=== PATIENT | male | born 1945 | race Caucasian/White ===

== ENCOUNTER → 2018-03-12 07:36 | Outpatient (CLI) | payer MEDICARE, OTHER, SELFPAY ==
[2018-03-12 09:11] LABS: Aspartate Aminotransferase 55 IU/L (17-59); Blood Urea Nitrogen 24 mg/dL (9-20); Calcium 9.5 mg/dL (8.4-10.2); Carbon Dioxide 34 mmol/L (22-32); Chloride 102 mmol/L (98-107); Cholesterol 173 mg/dL (140-199); Estimated Glomerular Filt Rate > 60.0 mL/min (>60); Glucose 110 mg/dL (80-110); HDL Cholesterol 52 mg/dL (40-60); HEMOLYSIS < 15 (0-50); LDL Cholesterol Calculated 84 mg/dL (<100); Potassium 3.8 mmol/L (3.4-5.1); Sodium 144 mmol/L (137-145); Triglycerides 187 mg/dL (35-150); Uric Acid 6.4 mg/dL (3.5-8.5)
[2018-03-12 09:16] LABS: Hematocrit 45.4 % (41-53); Hemoglobin 15.8 g/dL (13.5-17.5); Mean Corpuscular HGB Conc 34.8 % (30-36); Mean Corpuscular Hemoglobin 31.2 PG (26-34); Mean Corpuscular Volume 89.5 fL (80-100); Platelet Count 164 X10^3/uL (150-400); Red Blood Cell Count 5.07 X10^6/uL (4.5-5.9); Red Cell Distribution Width 12.9 % (11.6-14.8); White Blood Cell Count 3.8 X10^3/uL (4.5-11.0)
[2018-03-12 09:19] LABS: Add Manual Diff / Slide Review YES
[2018-03-12 09:38] LABS: Prostate Specific Antigen < 0.064 ng/mL (0.10-4.00)
[2018-03-12 10:01] LABS: Neutrophils Absolute Manual 2090 /uL (3000-5900); Total Cells Counted 100
[2018-03-12 10:49] LABS: Thyroid Stimulating Hormone 3.71 uIU/mL (0.47-4.68)
== END ==
PROVIDERS: PCP Internal Medicine; Referring Provider Urology; Visit Provider Internal Medicine
DX: C61 Malignant neoplasm of prostate (principal); E78.00 Pure hypercholesterolemia, unspecified; M10.9 Gout, unspecified
CPT/HCPCS: 36415; 80048; 80061; 84153; 84443; 84450; 84550; 85025

== ENCOUNTER → 2019-02-28 08:39 | Outpatient (CLI) | payer MEDICARE, OTHER, SELFPAY ==
[2019-02-28 09:56] LABS: Aspartate Aminotransferase 29 IU/L (17-59); Blood Urea Nitrogen 21 mg/dL (9-20); Calcium 9.7 mg/dL (8.4-10.2); Carbon Dioxide 33 mmol/L (22-32); Chloride 102 mmol/L (98-107); Cholesterol 187 mg/dL (140-199); Estimated Glomerular Filt Rate > 60.0 mL/min (>60); Glucose 107 mg/dL (80-110); HDL Cholesterol 56 mg/dL (40-60); HEMOLYSIS < 15 (0-50); LDL Cholesterol Calculated 98 mg/dL (<100); Sodium 142 mmol/L (137-145); Triglycerides 167 mg/dL (35-150); Uric Acid 6.6 mg/dL (3.5-8.5)
[2019-02-28 10:20] LABS: TSH w/ Reflex to FT4 2.97 uIU/mL (0.47-4.68)
[2019-02-28 10:25] LABS: Prostate Specific Antigen < 0.064 ng/mL (0.10-4.00)
== END ==
PROVIDERS: PCP Internal Medicine; Visit Provider Internal Medicine
DX: E03.9 Hypothyroidism, unspecified (principal); I10 Essential (primary) hypertension; E78.2 Mixed hyperlipidemia; C61 Malignant neoplasm of prostate
CPT/HCPCS: 36415; 80048; 80061; 84153; 84443; 84450; 84550

== ENCOUNTER → 2020-03-01 10:11 | Outpatient (CLI) | payer MEDICARE, OTHER, SELFPAY ==
[2020-03-01 11:12] LABS: Add Manual Diff / Slide Review NO; Basophils Absolute Auto 100 /uL (0-100); Basophils Percent Auto 2.1 % (0-2); Eosinophils Absolute Auto 200 /uL (0-450); Eosinophils Percent Auto 3.8 % (2-4); Hematocrit 42.9 % (41-53); Hemoglobin 14.7 g/dL (13.5-17.5); Lymphocytes Absolute Auto 1000 /uL (1100-4500); Lymphocytes Percent Auto 23.4 % (25-40); Mean Corpuscular HGB Conc 34.3 % (30-36); Mean Corpuscular Hemoglobin 31.4 PG (26-34); Mean Corpuscular Volume 91.6 fL (80-100); Monocytes Absolute Auto 700 /uL (0-900); Monocytes Percent Auto 15.3 % (3-14); Neutrophils Absolute Auto 2400 /uL (1500-7000); Neutrophils Percent Auto 55.4 % (50-75); Platelet Count 166 X10^3/uL (150-400); Red Blood Cell Count 4.69 X10^6/uL (4.5-5.9); Red Cell Distribution Width 12.7 % (11.6-14.8); White Blood Cell Count 4.3 X10^3/uL (4.5-11.0)
[2020-03-01 11:37] LABS: Aspartate Aminotransferase 32 IU/L (17-59); BUN Creatinine Ratio 23.3 (6-22); Blood Urea Nitrogen 27 mg/dL (9-20); Calcium 9.3 mg/dL (8.4-10.2); Carbon Dioxide 30 mmol/L (22-32); Chloride 102 mmol/L (98-107); Cholesterol 177 mg/dL (140-199); Estimated Glomerular Filt Rate > 60.0 mL/min (>60); Glucose 111 mg/dL (80-110); HDL Cholesterol 51 mg/dL (40-60); HEMOLYSIS < 15 (0-50); LDL Cholesterol Calculated 88 mg/dL (<100); Potassium 4.1 mmol/L (3.4-5.1); Sodium 137 mmol/L (137-145); Triglycerides 191 mg/dL (35-150); Uric Acid 6.9 mg/dL (3.5-8.5)
[2020-03-01 12:06] LABS: TSH w/ Reflex to FT4 3.04 uIU/mL (0.47-4.68)
[2020-03-01 12:09] LABS: Prostate Specific Antigen < 0.064 ng/mL (0.10-4.00)
== END ==
PROVIDERS: PCP Internal Medicine; Referring Provider Internal Medicine; Visit Provider Internal Medicine
DX: E03.9 Hypothyroidism, unspecified (principal); I10 Essential (primary) hypertension; E78.2 Mixed hyperlipidemia; M10.9 Gout, unspecified; C61 Malignant neoplasm of prostate
CPT/HCPCS: 36415; 80048; 80061; 84153; 84443; 84450; 84550; 85025

== ENCOUNTER → 2022-03-24 10:31 | Outpatient (CLI) | payer MEDICARE, OTHER, SELFPAY ==
[2022-03-25 06:29] LABS: PSA, Total < 0.1 ng/mL (0.0-4.0)
== END ==
PROVIDERS: Referring Provider Urology; Visit Provider Urology
DX: Z85.46 Personal history of malignant neoplasm of prostate (principal)
CPT/HCPCS: 36415; 84153; 84154

== ENCOUNTER → 2023-05-02 19:02 | Outpatient (CLI) | payer MEDICARE, OTHER, SELFPAY ==
[2023-05-02 19:59] LABS: BUN Creatinine Ratio 19.3 (6-22); Blood Urea Nitrogen 21 mg/dL (9-20); Calcium 9.9 mg/dL (8.4-10.2); Carbon Dioxide 30 mmol/L (22-32); Chloride 101 mmol/L (98-107); Estimated Glomerular Filt Rate > 60 mL/min (>60); Glucose 118 mg/dL (80-110); HEMOLYSIS < 15 (0-50); Potassium 3.8 mmol/L (3.4-5.1); Sodium 137 mmol/L (137-145)
== END ==
PROVIDERS: Visit Provider Nurse Practitioner Family
DX: U07.1 COVID-19 (principal)
CPT/HCPCS: 80048

== ENCOUNTER → 2023-05-23 08:02 | Outpatient (CLI) | payer MEDICARE, OTHER, SELFPAY ==
[2023-05-23 09:27] LABS: Hematocrit 41.4 % (41-53); Hemoglobin 14.2 g/dL (13.5-17.5); Mean Corpuscular HGB Conc 34.4 % (30-36); Mean Corpuscular Hemoglobin 30.4 PG (26-34); Mean Corpuscular Volume 88.4 fL (80-100); Platelet Count 171 X10^3/uL (150-400); Red Blood Cell Count 4.68 X10^6/uL (4.5-5.9); Red Cell Distribution Width 13.2 % (11.6-14.8); White Blood Cell Count 6.1 X10^3/uL (4.5-11.0)
[2023-05-23 09:43] LABS: Alanine Aminotransferase 22 IU/L (<50); Albumin 3.8 g/dL (3.5-5.0); Albumin Globulin Ratio 1.5 (1.0-2.8); Alkaline Phosphatase 75 U/L (38-126); Aspartate Aminotransferase 31 IU/L (17-59); BUN Creatinine Ratio 19.1 (6-22); Bilirubin Total 1.1 mg/dL (0.2-1.3); Blood Urea Nitrogen 21 mg/dL (9-20); Calcium 9.8 mg/dL (8.4-10.2); Carbon Dioxide 30 mmol/L (22-32); Chloride 102 mmol/L (98-107); Cholesterol 106 mg/dL (140-199); Estimated Glomerular Filt Rate > 60 mL/min (>60); Globulin 2.6 g/dL (1.7-4.1); Glucose 103 mg/dL (80-110); HDL Cholesterol 40 mg/dL (40-60); HEMOLYSIS < 15 (0-50); LDL Cholesterol Calculated 39 mg/dL (<100); Potassium 3.6 mmol/L (3.4-5.1); Sodium 138 mmol/L (137-145); Total Protein 6.4 g/dL (6.3-8.2); Triglycerides 133 mg/dL (35-150)
[2023-05-23 10:10] LABS: TSH w/ Reflex to FT4 2.95 uIU/mL (0.47-4.68)
[2023-05-23 10:11] LABS: Prostate Specific Antigen < 0.064 ng/mL (0.10-4.00)
== END ==
PROVIDERS: PCP Internal Medicine; Referring Provider Internal Medicine; Visit Provider Internal Medicine
DX: E03.9 Hypothyroidism, unspecified (principal); Z85.46 Personal history of malignant neoplasm of prostate; E78.2 Mixed hyperlipidemia; I10 Essential (primary) hypertension; M10.9 Gout, unspecified
CPT/HCPCS: 36415; 80053; 80061; 84153; 84443; 84550; 85027

== ENCOUNTER → 2023-11-14 08:57 | Outpatient (CLI) | payer MEDICARE, OTHER, SELFPAY ==
[2023-11-14 09:47] LABS: Hematocrit 45.3 % (41-53); Hemoglobin 15.4 g/dL (13.5-17.5); Mean Corpuscular Hemoglobin 30.5 PG (26-34); Mean Corpuscular Volume 89.7 fL (80-100); Platelet Count 193 X10^3/uL (150-400); Red Blood Cell Count 5.06 X10^6/uL (4.5-5.9); Red Cell Distribution Width 13.4 % (11.6-14.8); White Blood Cell Count 6.1 X10^3/uL (4.5-11.0)
[2023-11-14 10:04] LABS: Alanine Aminotransferase 29 IU/L (<50); Albumin 4.4 g/dL (3.5-5.0); Albumin Globulin Ratio 1.5 (1.0-2.8); Alkaline Phosphatase 79 U/L (38-126); Aspartate Aminotransferase 43 IU/L (17-59); BUN Creatinine Ratio 22.5 (6-22); Bilirubin Total 0.9 mg/dL (0.2-1.3); Blood Urea Nitrogen 27 mg/dL (9-20); Calcium 9.7 mg/dL (8.4-10.2); Carbon Dioxide 31 mmol/L (22-32); Chloride 102 mmol/L (98-107); Estimated Glomerular Filt Rate > 60 mL/min (>60); Globulin 2.9 g/dL (1.7-4.1); Glucose 105 mg/dL (80-110); HEMOLYSIS < 15 (0-50); Potassium 4.2 mmol/L (3.4-5.1); Sodium 137 mmol/L (137-145); Total Protein 7.3 g/dL (6.3-8.2); Uric Acid 5.3 mg/dL (3.5-8.5)
[2023-11-14 10:31] LABS: Prostate Specific Antigen < 0.064 ng/mL (0.10-4.00)
[2023-11-14 10:35] LABS: TSH w/ Reflex to FT4 2.66 uIU/mL (0.47-4.68)
== END ==
PROVIDERS: PCP Internal Medicine; Referring Provider Internal Medicine; Visit Provider Internal Medicine
DX: Z85.46 Personal history of malignant neoplasm of prostate (principal); E03.9 Hypothyroidism, unspecified; E78.2 Mixed hyperlipidemia
CPT/HCPCS: 36415; 80053; 84153; 84443; 84550; 85027

== ENCOUNTER → 2024-12-10 19:31 | Outpatient (CLI) | payer MEDICARE, OTHER, SELFPAY ==
--- NOTE | 2024-12-10 19:33 | DI.MRI.S_ITS ---
PROCEDURE: MR PELIS WO/W CON INDICATIONS: malignant neoplasm of overlapping sites of bladder TECHNIQUE: Noncontrast coronal T1 spin echo and STIR, sagittal T1 spin echo with fat saturation and STIR, axial T1 spin echo and T2 fast spin echo with fat saturation. After the administration of contrast, axial/sagittal/coronal T1 spin echo with fat saturation through the pelvis . COMPARISON: None. FINDINGS: Image quality: Degraded by susceptibility artifact Lower abdomen: No bowel obstruction or lower abdomen. Colonic diverticula. There is increased fecal loading. Bladder: Diffuse wall thickening. This is not well assessed due to under distension. There is focal diffusion restriction at the anterior and right bladder wall, which is suspicious. Reproductive organs: Prostate bed not well assessed on this study Rectum: Unremarkable Vessels and lymph nodes: There is a T2 hyperintense abnormality in the right lower quadrant anterior aspect, adjacent the external iliac vessels, measuring 2.5 x 3.3 cm. No aneurysmal artery identified. Pelvic wall: Unremarkable Bones: Loss of marrow signal in the superior. Bones bilaterally. IMPRESSION: Reported bladder malignancy with diffuse wall thickening and focal diffusion restriction along the anterior and right bladder wall, likely the primary. Evaluation is limited due to under distension of the bladder. T2 hyperintense suspicious lesion is seen in the right lower quadrant adjacent to the external iliac vessels measuring 3.3 x 2.5 cm. Unfortunately this area is degraded by susceptibility artifact. CT or PET-CT could be helpful for further evaluation. Relatively confluent edema, enhancement, and loss of the intrinsic T1 marrow signal is present in the bilateral superior iliac bones with surrounding soft tissue edema. This is less typical for a bone metastasis. Consider possibility of osteomyelitis or osteitis pubis. This study was marked in PACS for communication and follow-up. Dictated by: Yang Martinez M.D. on 12/11/2024 at 11:48 Approved by: Yang Martinez M.D. on 12/11/2024 at 11:55
== END ==
PROVIDERS: PCP Internal Medicine; Visit Provider Student in an Organized Health Care Education/Training Program
DX: C67.8 Malignant neoplasm of overlapping sites of bladder (principal)
CPT/HCPCS: 72197; A9579

== ENCOUNTER 2025-01-24 22:06 | Emergency (ER) | payer MEDICARE, OTHER, SELFPAY ==
[2025-01-24 22:15] VITALS: BP 138/66; PULSE 87; RESP 16; TEMP 36.7; O2SAT 97; BMI 20.9
--- NOTE | 2025-01-24 22:26 | ED.ANIMALBIT ---
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 Related Data Home Medications ?Medication ?Instructions ?Recorded ?Confirmed CBD Tincture 1 ml PO BEDTIME 05/16/23 11/14/23 cholecalciferol (vitamin D3) 25 50 mcg PO DAILY 05/16/23 12/22/24 mcg (1,000 unit) capsule coenzyme Q10 300 mg capsule (Co 300 mg PO DAILY 05/16/23 12/22/24 Q-10) multivitamin 1 tab PO DAILY 05/16/23 12/22/24 oxybutynin chloride 10 mg 10 mg PO DAILY 11/19/24 12/22/24 tablet,extended release 24 hr phenazopyridine 100 mg tablet 100 mg PO TID 11/19/24 12/22/24 Previous Rx's ?Medication ?Instructions ?Recorded levothyroxine 150 mcg tablet 75 mcg (1/2 x 150 mcg) PO DAILY 01/04/24 (Synthroid) #90 tabs allopurinol 100 mg tablet 100 mg PO DAILY #90 tabs 06/02/24 bisoprolol fumarate 10 mg tablet 5 mg (1/2 x 10 mg) PO DAILY #90 06/02/24 tabs hyoscyamine sulfate 0.125 mg 0.125 mg PO BID-QID PRN spasms #60 11/19/24 disintegrating tablet tabs mirtazapine 15 mg tablet 15 mg PO BEDTIME #90 tabs 12/09/24 gabapentin 300 mg capsule 600 mg (2 x 300 mg) PO TID #180 12/22/24 caps lorazepam 0.5 mg tablet 0.5 mg PO DAILY PRN anxiety #30 12/22/24 tabs rosuvastatin 40 mg tablet 20 mg (1/2 x 40 mg) PO DAILY #45 12/22/24 tabs docusate sodium 250 mg capsule 250 mg PO BID PRN constipation #90 01/05/25 caps amoxicillin 875 mg-potassium 1 tab PO Q12H 10 days #20 tabs 01/24/25 clavulanate 125 mg tablet Allergies Allergy/AdvReac Type Severity Reaction Status Date / Time No Known Drug Allergies Allergy Verified 01/24/25 22:15 Review of Systems Review of Systems Narrative: General: Denies fever, chills, weight loss HEENT: Denies headache, eye drainage, eye irritation, head trauma, sore throat, voice change Cardiovascular: Denies any chest pain, palpitations, tachycardia Respiratory: Denies any shortness of breath, cough, wheeze, stridor GI/: Denies any abdominal pain, nausea, vomiting, diarrhea, bright red blood per rectum, melanotic stools, urinary frequency, urinary retention, dysuria, hematuria MSK: Dog bite to the right hand Skin: Denies any rashes, lesions, discoloration Neuro: Denies any headache, lightheadedness, dizziness, fainting, weakness Psych: Denies SI/HI Patient History Medical History (Updated 01/24/25 @ 23:28 by Franky Escamilla DO) Slow transit constipation Weight loss, abnormal Bladder cancer Insomnia Seasonal affective disorder Generalized anxiety disorder Bone spur (~2019) Chicken pox Cataracts, bilateral (~2016) Diverticular disease (~2014) History of prostate cancer (~2014) Coronary artery calcification Gout Acquired hypothyroidism (~1994) Mixed hyperlipidemia (~1989) Essential hypertension (~1989) Surgical History Anesthesia Dupuytren's contracture History of radical prostatectomy (~2014) Family History Father Toan's granulomatosis Mother RPGN (rapidly progressive glomerulonephritis) Brother Hydrocephalus Grandfather History of heart disease ASCVD (arteriosclerotic cardiovascular disease) Grandmother Dementia Grandmother Cancer Social History Smoking Status: Never smoker Smoking Status: Never smoker Alcohol type: wine Exam Narrative Exam Narrative: General: Cooperative, well-developed, not in acute distress HEENT: Normocephalic, atraumatic, PERRLA, normal sclera, eyelids normal Neck: Active full range of motion, atraumatic Chest: Normal to inspection, negative crepitus, no overlying erythema ecchymosis Respiratory: Normal respiratory effort, not in acute respiratory distress, clear to auscultation bilaterally negative cough, wheeze, tachypnea, rhonchi, rales Cardiology: Regular rate rhythm negative gallop, murmur, rubs GI/: No tenderness to palpation, soft, non rigid, normal to inspection, exam deferred MSK: Full active range of motion in all 4 extremities, atraumatic, no tenderness to palpation of any bony prominences Skin: Laceration noted to the dorsal aspect of the right hand at the base of the 5th and 4th digit, does not involve tendon no foreign body not actively bleeding, there is also a small puncture wound noted to the volar aspect at the base of the thumb in between the 1st and 2nd digit not actively bleeding he is neurovascularly intact to the hand Neuro: Alert awake oriented x3, moves all 4 extremities spontaneously, cranial nerves intact, able to answer all questions appropriately follows commands appropriately Psych: Cooperative, negative suicidal or homicidal ideations Initial Vital Signs Initial Vital Signs: Vital Signs Temperature 98.1 F 01/24/25 22:15 Pulse Rate 87 01/24/25 22:15 Respiratory Rate 16 01/24/25 22:15 Blood Pressure 138/66 01/24/25 22:15 Pulse Oximetry 97 01/24/25 22:15 Oxygen Delivery Method Room Air 01/24/25 22:15 Procedures Laceration Repair Laceration 1: Time of procedure: 23:25 Site: hand Side (If applicable): right Size (cm): 3 Description: linear Depth: simple, single layer Local Anesthetic: lidocaine 1% Amount of anesthesia used (mL): 8 Pre-repair: wound explored, irrigated extensively, deep structures intact and extensive debridement Skin layer closed with: other (Ethilon) Skin layer suture size: 4-0 Number of sutures: 4 Technique: simple, interrupted Course Orders Ordered: Discontinued Medications Diphtheria/Tetanus/Acell Pertussis (Tet,Diph,Pertuss(Acell),Vac/Pf 0.5 Ml Syringe) 0.5 ml IM .ONCE ONE Stop: 01/24/25 22:27 Vital Signs Vital signs: Vital Signs - 8 hr 01/24/25 22:15 Temperature 98.1 F Pulse Rate 87 Respiratory Rate 16 Blood Pressure 138/66 Pulse Oximetry 97 Oxygen Delivery Method Room Air MDM - Animal Bite Differential Diagnosis Differential diagnosis: Likely bite by animal, dog bite and other MDM Narrative Medical decision making narrative: Patient is a 79-year-old male with a past medical history of hyperlipidemia hypertension currently undergoing chemo for prostate cancer comes into the ED from home for evaluation of dog bite, states that his dog bit him in his right hand earlier today, on exam superficial lacerations noted to the base of the 5th and 4th finger, does not involve the tendon he is neurovascularly intact no foreign body he also has a puncture wound noted to the base of the 1st and 2nd finger, the lacerations were loosely approximated, patient was updated on his tetanus and started on prophylactic antibiotics, he was instructed follow up with his primary care doctor he verbalized understanding of this and agrees to being discharged home with outpatient follow up Discharge Plan Departure Patient Disposition: Home Clinical Impression: Hand laceration, Dog bite Instructions: DI for Laceration Repair, DI for Dog Bite Activity Restrictions/Additional Instructions: Please follow up with your primary care doctor to have your wound re-evaluated and have your sutures removed Please return to the emergency department immediately if you start developing fever chills redness streaking or worsening pain to your hand along the antibiotic Please read the discharge instructions sheet carefully and bring all papers to all doctor follow-up visits, as it may contain information that your doctor may want to see. Disease processes change and evolve, if your symptoms worsen or if you develop any new symptoms that are concerning to you please return for evaluation. Your evaluation today does not show any evidence of any life-threatening/serious illnesses requiring admission to the hospital or surgery. Please follow-up with your doctor for re-evaluation in approximately 1 day. Seek immediate medical attention for any worrisome symptoms. *If you do not have a primary care provider please contact the [facility] Resource line at [phone]. They will ask some questions about your medical history and help get you set up with a doctor in the community. Prescriptions: New amoxicillin-pot clavulanate 875-125 mg tablet 1 tab PO Q12H 10 Days Qty: 20 0RF No Action levothyroxine [Synthroid] 150 mcg tablet 75 mcg PO DAILY Qty: 90 3RF allopurinol 100 mg tablet 100 mg PO DAILY Qty: 90 1RF bisoprolol fumarate 10 mg tablet 5 mg PO DAILY Qty: 90 1RF mirtazapine 15 mg tablet 15 mg PO BEDTIME Qty: 90 3RF docusate sodium 250 mg capsule 250 mg PO BID PRN (Reason: constipation) Qty: 90 1RF multivitamin Tablet 1 tab PO DAILY cholecalciferol (vitamin D3) 25 mcg (1,000 unit) capsule 50 mcg PO DAILY Co Q-10 300 mg capsule 300 mg PO DAILY CBD Tincture 1 ml PO BEDTIME phenazopyridine 100 mg tablet 100 mg PO TID oxybutynin chloride 10 mg tablet extended release 24hr 10 mg PO DAILY hyoscyamine sulfate 0.125 mg tablet,disintegrating 0.125 mg PO BID-QID PRN (Reason: spasms) Qty: 60 2RF gabapentin 300 mg capsule 600 mg PO TID Qty: 180 5RF lorazepam 0.5 mg tablet 0.5 mg PO DAILY PRN (Reason: anxiety) Qty: 30 5RF rosuvastatin 40 mg tablet 20 mg PO DAILY Qty: 45 3RF Referrals: Bill Carroll MD [Primary Care Provider, Internal Medicine] Stand Alone Forms: Patient Portal/API
[2025-01-24] MEDS: TET,DIPH,PERTUSS(ACELL),VAC/PF 0.5 ML SYRINGE IM (23:14)
[2025-01-24] MEDS: AMOXICILLIN/CLAV 875/125 MG 1 TAB PO (23:33)
== END 2025-01-24 23:45 | disposition home or self-care (01) ==
PROVIDERS: Emergency Provider Student in an Organized Health Care Education/Training Program; PCP Internal Medicine
DX: S61.411A Laceration without foreign body of right hand, initial encounter (principal); W54.0XXA Bitten by dog, initial encounter; Z23 Encounter for immunization; C61 Malignant neoplasm of prostate
CPT/HCPCS: 12002; 90471; 99283; 90715

== ENCOUNTER → 2025-01-30 07:33 | Outpatient (CLI) | payer MEDICARE, OTHER, SELFPAY ==
[2025-01-30 08:13] LABS: Add Manual Diff / Slide Review NO; Hematocrit 39.6 % (41-53); Hemoglobin 13.3 g/dL (13.5-17.5); Lymphocytes Absolute Auto 300 /uL (1100-4500); Mean Corpuscular HGB Conc 33.6 % (30-36); Mean Corpuscular Hemoglobin 30.2 PG (26-34); Mean Corpuscular Volume 89.7 fL (80-100); Platelet Count 394 X10^3/uL (150-400)
[2025-01-30 08:24] LABS: Alanine Aminotransferase 21 IU/L (<50); Albumin 3.8 g/dL (3.5-5.0); Albumin Globulin Ratio 1.4 (1.0-2.8); Alkaline Phosphatase 85 U/L (38-126); Blood Urea Nitrogen 39 mg/dL (9-20); Calcium 9.4 mg/dL (8.4-10.2); Carbon Dioxide 32 mmol/L (22-32); Chloride 100 mmol/L (98-107); Estimated Glomerular Filt Rate 55 mL/min (>60); Globulin 2.7 g/dL (1.7-4.1); Glucose 165 mg/dL (70-99); HEMOLYSIS < 15 (0-50); Magnesium 1.7 mg/dL (1.6-2.3); Potassium 4.9 mmol/L (3.4-5.1); Sodium 137 mmol/L (137-145); Total Protein 6.5 g/dL (6.3-8.2)
[2025-01-30 08:55] LABS: Thyroid Stimulating Hormone 1.64 uIU/mL (0.47-4.68)
== END ==
PROVIDERS: PCP Internal Medicine; Referring Provider Internal Medicine Hematology & Oncology; Visit Provider Internal Medicine Hematology & Oncology
DX: C67.6 Malignant neoplasm of ureteric orifice (principal); E78.2 Mixed hyperlipidemia; R91.8 Other nonspecific abnormal finding of lung field
CPT/HCPCS: 36415; 80053; 83735; 84443; 85025

== ENCOUNTER → 2025-02-04 09:54 | Outpatient (CLI) | payer MEDICARE, OTHER, SELFPAY ==
--- NOTE | 2025-02-04 09:56 | DI.RAD.S_ITS ---
PROCEDURE: XR FINGER RT MIN 2V INDICATIONS: DIP pain. rt 4th finger TECHNIQUE: AP hand, 2 views of the 4th finger (s) acquired. COMPARISON: None. FINDINGS: Bones: Mildly comminuted oblique intra-articular fracture through the distal 4th phalangeal base appreciated. Distal fragment displaced 2 mm in a volar direction. Joints: Moderate degeneration STT 1st CMC and all interphalangeal joints Soft tissues: Moderate diffuse soft tissue swelling noted IMPRESSION: Comminuted intra-articular fracture 4th distal phalanx Dictated by: Basilio Uribe M.D. on 02/05/2025 at 12:21 Approved by: Basilio Uribe M.D. on 02/05/2025 at 12:23
== END ==
PROVIDERS: PCP Internal Medicine; Referring Provider Family Medicine; Visit Provider Family Medicine
DX: S62.634A Displaced fracture of distal phalanx of right ring finger, initial encounter for closed fracture (principal); S60.041A Contusion of right ring finger without damage to nail, initial encounter; X58.XXXA Exposure to other specified factors, initial encounter
CPT/HCPCS: 73140

== ENCOUNTER 2025-04-05 12:13 | Emergency (ER) | payer MEDICARE, OTHER, SELFPAY ==
[2025-04-05] VITALS (25 sets, daily range): BP systolic 110–156; BP diastolic 59–83; PULSE 80–102; RESP 12–24; TEMP 36.4–36.8; O2SAT 96–99; BMI 22.4
[2025-04-05 14:27] LABS: Add Manual Diff / Slide Review NO; Lymphocytes Absolute Auto 500 /uL (1100-4500); Mean Corpuscular HGB Conc 34.7 % (30-36); Mean Corpuscular Hemoglobin 32.1 PG (26-34); Mean Corpuscular Volume 92.4 fL (80-100); Platelet Count 75 X10^3/uL (150-400)
[2025-04-05 14:29] LABS: Hematocrit 18.7 % (41-53); Hemoglobin 6.5 g/dL (13.5-17.5)
[2025-04-05 14:31] LABS: Alanine Aminotransferase 15 IU/L (<50); Albumin 3.6 g/dL (3.5-5.0); Albumin Globulin Ratio 1.3 (1.0-2.8); Alkaline Phosphatase 74 U/L (38-126); Blood Urea Nitrogen 24 mg/dL (9-20); Calcium 8.7 mg/dL (8.4-10.2); Carbon Dioxide 31 mmol/L (22-32); Chloride 104 mmol/L (98-107); Estimated Glomerular Filt Rate 41 mL/min (>60); Globulin 2.8 g/dL (1.7-4.1); Glucose 89 mg/dL (70-99); HEMOLYSIS < 15 (0-50); Potassium 4.3 mmol/L (3.4-5.1); Sodium 138 mmol/L (137-145); Total Protein 6.4 g/dL (6.3-8.2)
--- NOTE | 2025-04-05 14:40 | EKG_ITS ---
[address] [id number] [address] [place] [address] Test Date: 2025-04-05 Pat Name: Cody Carranza Department: Room: Gender: Male Export Manager: HARMONY : 1945 Requested By: Order Number: [id number] Reading MD: Basilio Mark MD Measurements Intervals [place] Rate: 84 P: 58 OH: 240 QRS: -53 QRSD: 88 T: -8 QT: 392 QTc: 463 Interpretive Statements Sinus rhythm with 1st degree AV block with premature atrial complexes Left axis deviation Electronically Signed On 04-06-2025 5:57:49 PDT by Basilio Mark MD
--- NOTE | 2025-04-05 15:37 | ED.RECABL ---
HPI - Recheck/Abnormal Lab/Rx General Chief Complaint: Recheck/Abnormal Lab/Rx Stated Complaint: Need Infusion, Low Hemoglobin 6.6 Time Seen by Provider: 04/05/25 15:36 Source: patient and family Mode of arrival: Ambulatory Limitations: no limitations History of Present Illness HPI narrative: 79-year-old male history of bladder cancer currently on cisplatin has a received a total cycles, gemcitabine, durvalumab prior prostatectomy patient also takes medication for hypothyroidism, dyslipidemia no aspirin or thinners. Patient presents with complaint of low blood count. He had labs drawn with a his oncologist on Sunday was found to be low, had repeat labs on Sunday was encouraged to go to the hospital for transfusion the hemoglobin in the 6 range but he did not. He did have some lightheadedness but no syncope. He has noticed some mild shortness of breath. Denies any chest pain or pressure. No nausea or vomiting. No issues with bowel movements, no hematuria or issues with bleeding that he is appreciated. He notes his oncologist feels that his drop in hemoglobin is likely from his cisplatin. He notes has a prior prostatectomy and right inguinal hernia repair. No drug allergies. No tobacco, 1 or 2 alcoholic drinks nightly, no recreational drugs. Follow with Dr. Alec Davila, with [facility] in [place]. Dr. Carroll is his primary care physician. Related Data Home Medications ?Medication ?Instructions ?Recorded ?Confirmed cholecalciferol (vitamin D3) 25 50 mcg PO DAILY 05/16/23 02/27/25 mcg (1,000 unit) capsule coenzyme Q10 300 mg capsule (Co 300 mg PO DAILY 05/16/23 02/27/25 Q-10) multivitamin 1 tab PO DAILY 05/16/23 02/27/25 oxybutynin chloride 10 mg 10 mg PO DAILY 11/19/24 02/27/25 tablet,extended release 24 hr phenazopyridine 100 mg tablet 100 mg PO TID 11/19/24 02/27/25 magnesium glycinate 250 mg PO .Nightly 02/04/25 02/27/25 diclofenac potassium 25 mg capsule 25 mg PO BID 02/27/25 02/27/25 furosemide 20 mg tablet (Lasix) 20 mg PO DAILY 02/27/25 02/27/25 Previous Rx's ?Medication ?Instructions ?Recorded allopurinol 100 mg tablet 100 mg PO DAILY #90 tabs 06/02/24 bisoprolol fumarate 10 mg tablet 5 mg (1/2 x 10 mg) PO DAILY #90 06/02/24 tabs lorazepam 0.5 mg tablet 0.5 mg PO DAILY PRN anxiety #30 12/22/24 tabs rosuvastatin 40 mg tablet 20 mg (1/2 x 40 mg) PO DAILY #45 12/22/24 tabs docusate sodium 250 mg capsule 250 mg PO BID PRN constipation #90 01/05/25 caps levothyroxine 150 mcg tablet 75 mcg (1/2 x 150 mcg) PO DAILY 02/23/25 (Synthroid) #90 tabs mirtazapine 15 mg tablet 15 mg PO BEDTIME #90 tabs 03/02/25 gabapentin 300 mg capsule 300 mg PO BID #240 caps 03/03/25 Allergies Allergy/AdvReac Type Severity Reaction Status Date / Time No Known Drug Allergies Allergy Verified 04/05/25 12:26 Review of Systems Review of Systems ROS Unobtainable: All systems reviewed & are unremarkable except as noted in HPI and below Patient History Medical History Slow transit constipation Weight loss, abnormal Bladder cancer Insomnia Seasonal affective disorder Generalized anxiety disorder Bone spur (~2019) Chicken pox Cataracts, bilateral (~2016) Diverticular disease (~2014) History of prostate cancer (~2014) Coronary artery calcification Gout Acquired hypothyroidism (~1994) Mixed hyperlipidemia (~1989) Essential hypertension (~1989) Surgical History Anesthesia Dupuytren's contracture History of radical prostatectomy (~2014) Family History Father Toan's granulomatosis Mother RPGN (rapidly progressive glomerulonephritis) Brother Hydrocephalus Grandfather History of heart disease ASCVD (arteriosclerotic cardiovascular disease) Grandmother Dementia Grandmother Cancer Alcohol type: wine Exam Narrative Exam Narrative: GENERAL: Alert and oriented x three, male mild distress HEENT: Head normocephalic, atraumatic, EOMI, pupils reactive, face symmetric, moist mucous membranes NECK: Supple, full range of motion CARDIOVASCULAR: Regular rate and rhythm without murmurs, rubs or gallops. No JVD. Trace edema bilateral lower extremities. RESPIRATORY: Breath sounds equal bilaterally, no wheezes rales or rhonchi. No tachypnea or accessory muscle use. ABDOMEN: Soft, nontender. Normoactive bowel sounds all 4 quadrants. No guarding or rebound, rigidity, no mass : No CVA tenderness EXTREMITIES: Normal range of motion, no clubbing or edema. Neurovascularly intact NEUROLOGICAL: Cranial nerves II through XII grossly intact. Moving all extremities SKIN: Warm, dry, no petechiae, no rashes or lesions. Initial Vital Signs Initial Vital Signs: Vital Signs Temperature 98.3 F 04/05/25 12:24 Pulse Rate 102 H 04/05/25 12:24 Respiratory Rate 17 04/05/25 12:24 Blood Pressure 110/59 L 04/05/25 12:24 Pulse Oximetry 97 04/05/25 12:24 Oxygen Delivery Method Room Air 04/05/25 12:24 Course Orders Ordered: Discontinued Medications Heparin Sodium (Porcine) (Heparin 500 Unit/5 Ml Port Flush) 500 unit IV PRN PRN PRN Reason: Flush Last Admin: 04/05/25 21:42 Dose: 500 unit Documented By: DARREN Heparin Sodium (Porcine) (Heparin 500 Unit/5 Ml Port Flush) 500 unit IV PRN PRN PRN Reason: Flush Heparin Sodium (Porcine) (Heparin Flush (Cl/Picc/Mid-Line) 50 Unit/5 Ml Syringe) 50 unit IV PRN PRN PRN Reason: Flush Vital Signs Vital signs: Vital Signs - 8 hr 04/05/25 12:24 04/05/25 14:36 04/05/25 15:00 Temperature 98.3 F Pulse Rate 102 H 85 80 Respiratory Rate 17 19 16 Blood Pressure 110/59 L Pulse Oximetry 97 98 97 Oxygen Delivery Method Room Air 04/05/25 15:26 04/05/25 15:26 04/05/25 15:30 Temperature Pulse Rate 81 Respiratory Rate 17 Blood Pressure 126/70 128/68 Pulse Oximetry 98 Oxygen Delivery Method 04/05/25 15:30 04/05/25 16:00 04/05/25 16:00 Temperature Pulse Rate 80 83 Respiratory Rate 17 Blood Pressure 125/65 Pulse Oximetry 97 96 Oxygen Delivery Method 04/05/25 16:25 04/05/25 16:30 04/05/25 16:30 Temperature 98 F Pulse Rate 84 83 Respiratory Rate 16 12 Blood Pressure 125/65 137/73 Pulse Oximetry 97 Oxygen Delivery Method 04/05/25 16:42 04/05/25 16:45 04/05/25 16:45 Temperature 98.1 F Pulse Rate 84 83 Respiratory Rate 16 21 Blood Pressure 137/73 128/74 Pulse Oximetry 98 Oxygen Delivery Method 04/05/25 17:00 04/05/25 17:00 04/05/25 17:30 Temperature Pulse Rate 82 81 Respiratory Rate 13 15 Blood Pressure 130/73 Pulse Oximetry 99 99 Oxygen Delivery Method 04/05/25 17:30 04/05/25 18:00 04/05/25 18:18 Temperature Pulse Rate 85 Respiratory Rate 23 Blood Pressure 143/73 H 139/76 Pulse Oximetry 97 Oxygen Delivery Method 04/05/25 18:18 Temperature Pulse Rate 83 Respiratory Rate 20 Blood Pressure Pulse Oximetry 97 Oxygen Delivery Method MDM - Recheck/Abnormal Lab/Rx Lab Data 04/05/25 14:05 04/05/25 14:05 Labs: Lab Results 04/05/25 Range/Units 14:05 WBC 2.5 L (4.5-11.0) X10^3/uL RBC 2.02 L (4.5-5.9) X10^6/uL Hgb 6.5 L* (13.5-17.5) g/dL Hct 18.7 L* (41-53) % MCV 92.4 (80-100) fL MCH 32.1 (26-34) PG MCHC 34.7 (30-36) % RDW 16.4 H (11.6-14.8) % Plt Count 75 L (150-400) X10^3/uL Neut % (Auto) 41.8 L (50-75) % Lymph % (Auto) 20.4 L (25-40) % [place] % (Auto) 35.7 H (3-14) % Eos % (Auto) 1.7 L (2-4) % Baso % (Auto) 0.4 (0-2) % Neut # (Auto) 1000 L (0455-9173) /uL Lymph # (Auto) 500 L (7725-0379) /uL [place] # (Auto) 900 (0-900) /uL Eos # (Auto) 0 (0-450) /uL Baso # (Auto) 0 (0-100) /uL Sodium 138 (137-145) mmol/L Potassium 4.3 (3.4-5.1) mmol/L Chloride 104 (98-107) mmol/L Carbon Dioxide 31 (22-32) mmol/L BUN 24 H (9-20) mg/dL Creatinine 1.67 H (0.66-1.25) mg/dL Estimated GFR 41 L (>60) mL/min BUN/Creatinine Ratio 14.4 (6-22) Glucose 89 (70-99) mg/dL Calcium 8.7 (8.4-10.2) mg/dL Magnesium 1.9 (1.6-2.3) mg/dL Total Bilirubin 0.4 (0.2-1.3) mg/dL AST 29 (17-59) IU/L ALT 15 (<50) IU/L Alkaline Phosphatase 74 (38-126) U/L Total Protein 6.4 (6.3-8.2) g/dL Albumin 3.6 (3.5-5.0) g/dL Globulin 2.8 (1.7-4.1) g/dL Albumin/Globulin Ratio 1.3 (1.0-2.8) Blood Type B Negative Antibody Screen Negative Crossmatch See Detail ECG Data Attestation: I personally reviewed and interpreted this ECG as follows: Interpretation: Sinus rhythm with a first-degree AV block rate 84 MO 240 QRS 88 QTC of 463, no acute ST-elevation or depression. No prior for comparison. MDM Narrative Medical decision making narrative: Labs show white count of 2.5 hemoglobin 6.5 with platelets of 75 on 03/17/2025 patient was 2.8 with a hemoglobin of 8.8 and platelets of 128 in January was 2.9 white count with platelets of 394 and a hemoglobin of 13.3. Patient's electrolytes are overall appropriate BUN 24 creatinine is 1.67 was 1.32 earlier in March. Magnesium Plan to transfuse 2 units packed red blood cells. Patient gives verbal and written consent for transfusion. Did reach out to patient's oncology through [place], paged at [phone] Valdovinos, oncology with [facility]. States 1 unit would be acceptable. Patient has not labs ordered for this week could discharge after so long as he is stable. Patient signed out to Dr. Pena while awaiting completion of his transfusion. No plan for additional interventions unless patient has a any reactions or issues plan for discharge home afterwards. Critical Care Time Critical Care Time Critical Care Time: Yes Total Critical Care Time: 20 Attestation: The high probability of a clinically significant, sudden or life threatening deterioration of the [systems] system(s) required my full and direct attention, intervention and personal management. The aggregate critical care time was [--] minutes. This time is in addition to time spent performing reported procedures but includes the following: [x] Data Review and interpretation [x] Patient assessment and monitoring of vital signs [x] Documentation [x] Medication orders and management Discharge Plan Departure Patient Disposition: Home Clinical Impression: Symptomatic anemia Activity Restrictions/Additional Instructions: You received 2 units of blood here in the department today. I did talk to the oncologist on-call for your team, you should have repeat labs this week. Your white blood cell count was 2.5 with a hemoglobin of 6.5 and a hematocrit 18.7 with platelets of 75. Your creatinine was 1.67 with a GFR of 41 today she had otherwise normal electrolytes, your magnesium was normal range at 1.9. Please return if you have new chest pain or shortness of breath, fevers, lightheadedness or passing out, persistent vomiting or other new or concerning changes Prescriptions: No Action allopurinol 100 mg tablet 100 mg PO DAILY Qty: 90 1RF bisoprolol fumarate 10 mg tablet 5 mg PO DAILY Qty: 90 1RF docusate sodium 250 mg capsule 250 mg PO BID PRN (Reason: constipation) Qty: 90 1RF levothyroxine [Synthroid] 150 mcg tablet 75 mcg PO DAILY Qty: 90 3RF mirtazapine 15 mg tablet 15 mg PO BEDTIME Qty: 90 3RF gabapentin 300 mg capsule 300 mg PO BID Qty: 240 3RF multivitamin Tablet 1 tab PO DAILY cholecalciferol (vitamin D3) 25 mcg (1,000 unit) capsule 50 mcg PO DAILY Co Q-10 300 mg capsule 300 mg PO DAILY phenazopyridine 100 mg tablet 100 mg PO TID oxybutynin chloride 10 mg tablet extended release 24hr 10 mg PO DAILY magnesium glycinate 250 mg PO .Nightly lorazepam 0.5 mg tablet 0.5 mg PO DAILY PRN (Reason: anxiety) Qty: 30 5RF rosuvastatin 40 mg tablet 20 mg PO DAILY Qty: 45 3RF furosemide [Lasix] 20 mg tablet 20 mg PO DAILY diclofenac potassium 25 mg capsule 25 mg PO BID Referrals: Bill Carroll MD [Primary Care Provider, Internal Medicine] Stand Alone Forms: Patient Portal/API
[2025-04-05 15:59] LABS: Magnesium 1.9 mg/dL (1.6-2.3)
== END 2025-04-05 21:47 | disposition home or self-care (01) ==
PROVIDERS: Emergency Provider Emergency Medicine; PCP Internal Medicine
DX: D64.9 Anemia, unspecified (principal); I44.0 Atrioventricular block, first degree; R06.02 Shortness of breath
CPT/HCPCS: 36415; 36430; 80053; 83735; 85025; 86850; 86900; 86901; 93005; 93010; 99284; 99285; P9016; J1642

== ENCOUNTER 2025-04-15 08:54 | Emergency (ER) | payer MEDICARE, OTHER, SELFPAY ==
[2025-04-15] VITALS (16 sets, daily range): BP systolic 135–187; BP diastolic 65–87; PULSE 75–92; RESP 11–20; TEMP 36.7; O2SAT 92–98; BMI 21.7
--- NOTE | 2025-04-15 09:11 | EKG_ITS ---
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
--- NOTE | 2025-04-15 09:11 | DI.RAD.S_ITS ---
PROCEDURE: XR CHEST 1V INDICATIONS: Chest Pain TECHNIQUE: One view of the chest was acquired. COMPARISON: None. FINDINGS: Surgical changes and devices: Right-sided Port-A-Cath. Lungs and pleura: Lungs are clear. No pleural effusions or pneumothorax. Mediastinum: Mediastinal contours appear normal. Heart size is normal. Bones and chest wall: No suspicious bony lesions. Overlying soft tissues appear unremarkable. IMPRESSION: No acute cardiopulmonary abnormality is seen. Dictated by: Jeny Jean MD, PhD on 04/15/2025 at 9:59 Approved by: Jeny Jean MD, PhD on 04/15/2025 at 9:59
--- NOTE | 2025-04-15 09:11 | ED.GENADULT ---
HPI - General Adult General Chief complaint: Weakness Stated complaint: Increased Lethargy Time Seen by Provider: 04/15/25 09:09 Source: patient, RN notes reviewed and old records reviewed Mode of arrival: EMS Limitations: no limitations History of Present Illness HPI narrative: 79-year-old male history of bladder cancer currently on cisplatin, gemcitabine, durvalumab with prior prostatectomy on medication for hypothyroidism, dyslipidemia but no aspirin or thinners. Patient was seen here on 04/05/2025 had symptomatic anemia has been seeing his oncologist was found to have his numbers low and suspected to be related to his chemotherapy has been encouraged to evaluate and had a blood transfusion with 2 units on 04/05/2025. Patient has been feeling improved started to feel little bit fatigued and unwell yesterday, today his states he is answering questions but keeps falling asleep. He has been weak and have difficulty with ambulating and slid off the bed when trying to get to the bathroom. States he was walking and ambulating okay yesterday. Denies any fevers. Patient denies any pain no headaches, no chest pain no shortness of breath no abdominal back or flank pain. Notes he feels dizzy like the room is spinning when he gets up from a sitting to standing position. He denies any syncope, no tunnel vision. He has not had similar symptoms in the past. He states it does not seem to be worse if he shakes his head side to side quickly. He has had decreased appetite since yesterday. Has been having regular stools. No dysuria urgency or frequency. No new rash or skin changes. No new medications. He completed his last dose of cisplatin a month ago, he had gemcitabine and durvalumab on 03/25/2025. He follows with the oncology with Dr. Alec Davila in [place]. Dr. Carroll is his primary care physician. Related Data Home Medications ?Medication ?Instructions ?Recorded ?Confirmed cholecalciferol (vitamin D3) 25 50 mcg PO DAILY 05/16/23 02/27/25 mcg (1,000 unit) capsule coenzyme Q10 300 mg capsule (Co 300 mg PO DAILY 05/16/23 02/27/25 Q-10) multivitamin 1 tab PO DAILY 05/16/23 02/27/25 oxybutynin chloride 10 mg 10 mg PO DAILY 11/19/24 02/27/25 tablet,extended release 24 hr phenazopyridine 100 mg tablet 100 mg PO TID 11/19/24 02/27/25 magnesium glycinate 250 mg PO .Nightly 02/04/25 02/27/25 diclofenac potassium 25 mg capsule 25 mg PO BID 02/27/25 02/27/25 furosemide 20 mg tablet (Lasix) 20 mg PO DAILY 02/27/25 02/27/25 Previous Rx's ?Medication ?Instructions ?Recorded allopurinol 100 mg tablet 100 mg PO DAILY #90 tabs 06/02/24 bisoprolol fumarate 10 mg tablet 5 mg (1/2 x 10 mg) PO DAILY #90 06/02/24 tabs lorazepam 0.5 mg tablet 0.5 mg PO DAILY PRN anxiety #30 12/22/24 tabs rosuvastatin 40 mg tablet 20 mg (1/2 x 40 mg) PO DAILY #45 12/22/24 tabs docusate sodium 250 mg capsule 250 mg PO BID PRN constipation #90 01/05/25 caps levothyroxine 150 mcg tablet 75 mcg (1/2 x 150 mcg) PO DAILY 02/23/25 (Synthroid) #90 tabs mirtazapine 15 mg tablet 15 mg PO BEDTIME #90 tabs 03/02/25 gabapentin 300 mg capsule 300 mg PO BID #240 caps 03/03/25 meclizine 50 mg tablet 50 mg PO BID PRN dizziness or 04/15/25 vertigo #14 tabs Allergies Allergy/AdvReac Type Severity Reaction Status Date / Time No Known Drug Allergies Allergy Verified 04/15/25 09:08 Review of Systems Review of Systems ROS Unobtainable: All systems reviewed & are unremarkable except as noted in HPI and below Patient History Medical History Slow transit constipation Weight loss, abnormal Bladder cancer Insomnia Seasonal affective disorder Generalized anxiety disorder Bone spur (~2019) Chicken pox Cataracts, bilateral (~2016) Diverticular disease (~2014) History of prostate cancer (~2014) Coronary artery calcification Gout Acquired hypothyroidism (~1994) Mixed hyperlipidemia (~1989) Essential hypertension (~1989) Surgical History Anesthesia Dupuytren's contracture History of radical prostatectomy (~2014) Family History Father Toan's granulomatosis Mother RPGN (rapidly progressive glomerulonephritis) Brother Hydrocephalus Grandfather History of heart disease ASCVD (arteriosclerotic cardiovascular disease) Grandmother Dementia Grandmother Cancer Social History Smoking Status: Unknown if ever smoked Smoking Status: Unknown if ever smoked Alcohol type: wine Exam Narrative Exam Narrative: GEN: well nourished, well appearing male, alert and oriented x [default value], patient appears to be in mild distress. HEENT: Atraumatic, pupils are equal round reactive to light, extraocular movements are intact, no nystagmus, nares are clear, TMs are clear with no fluid, there is no conjunctival pallor. Throat is clear without any exudates, erythema, tonsillar enlargement or uvular deviation, no facial droop, no cervical vertebral tenderness HEART: Regular rate and rhythm without murmur, clicks, rubs. No carotid bruits, pulses are equal in upper and lower extremities LUNGS:Lungs clear to auscultation, no wheezes, rales, crackles, chest moves symmetrically ABD:bowel sounds normal, soft, non-tender, no guarding, rebound, rigidity, no masses noted, no hepatosplenomegaly :No CVA tenderness MSCL: Non-tender, no muscle atrophy, muscles strength 5/5 upper and lower extremities, solutions development analyst equal bilaterally. Full range of motion. NEURO:CN 2-12 intact, sensation normal, no dysarthria, no aphasia. Initial Vital Signs Initial Vital Signs: Vital Signs Temperature 98.0 F 04/15/25 08:55 Pulse Rate 83 04/15/25 08:55 Respiratory Rate 14 04/15/25 08:55 Blood Pressure 141/67 H 04/15/25 08:55 Pulse Oximetry 96 04/15/25 08:55 Oxygen Delivery Method Room Air 04/15/25 08:55 Course Orders Ordered: ED Orders 04/15/25 09:21 CT head/brain wo con Stat 04/15/25 14:00 Urine Microscopic Stat Discontinued Medications Sodium Chloride (Normal Saline 0.9%) 500 mls @ 1,000 mls/hr IV BOLUS ONE Stop: 04/15/25 11:35 Last Infusion: 04/15/25 12:00 Dose: Infused Documented By: Admin: 04/15/25 11:15 Dose: 1,000 mls/hr Documented By: MARY Meclizine HCl (Meclizine Hcl 12.5 Mg Tablet) 50 mg PO NOW ONE Stop: 04/15/25 09:22 Last Admin: 04/15/25 09:29 Dose: 50 mg Documented By: ESPERANZA Vital Signs Vital signs: Vital Signs - 8 hr 04/15/25 10:30 04/15/25 10:30 04/15/25 11:00 Pulse Rate 75 78 Respiratory Rate 11 L 14 Blood Pressure 137/66 Pulse Oximetry 96 96 Oxygen Delivery Method Oxygen Flow Rate 04/15/25 11:00 04/15/25 11:30 04/15/25 11:30 Pulse Rate 80 Respiratory Rate 12 Blood Pressure 135/65 148/75 H Pulse Oximetry 92 Oxygen Delivery Method Nasal Cannula Oxygen Flow Rate 2 04/15/25 12:00 04/15/25 12:00 04/15/25 12:30 Pulse Rate 77 79 Respiratory Rate 13 20 Blood Pressure 151/82 H Pulse Oximetry 98 94 Oxygen Delivery Method Room Air Oxygen Flow Rate 04/15/25 12:30 04/15/25 13:00 04/15/25 13:00 Pulse Rate 76 Respiratory Rate 15 Blood Pressure 166/74 H 169/80 H Pulse Oximetry 95 Oxygen Delivery Method Oxygen Flow Rate 04/15/25 13:30 04/15/25 13:30 04/15/25 14:00 Pulse Rate 78 Respiratory Rate 15 Blood Pressure 158/86 H 187/87 H Pulse Oximetry 96 Oxygen Delivery Method Oxygen Flow Rate 04/15/25 14:00 04/15/25 14:30 04/15/25 15:03 Pulse Rate 87 81 92 H Respiratory Rate 17 13 Blood Pressure Pulse Oximetry 97 98 96 Oxygen Delivery Method Room Air Oxygen Flow Rate 04/15/25 15:04 04/15/25 15:04 Pulse Rate 86 Respiratory Rate Blood Pressure 181/87 H Pulse Oximetry 96 Oxygen Delivery Method Oxygen Flow Rate Medical Decision Making Lab Data 04/15/25 08:50 04/15/25 08:50 Labs: Lab Results 04/15/25 04/15/25 Range/Units 08:50 14:00 WBC 4.2 L (4.5-11.0) X10^3/uL RBC 3.07 L (4.5-5.9) X10^6/uL Hgb 10.0 L (13.5-17.5) g/dL Hct 28.8 L (41-53) % MCV 93.8 (80-100) fL MCH 32.5 (26-34) PG MCHC 34.6 (30-36) % RDW 16.4 H (11.6-14.8) % Plt Count 253 (150-400) X10^3/uL Neut % (Auto) Not Reportable Lymph % (Auto) Not Reportable [place] % (Auto) Not Reportable Eos % (Auto) Not Reportable Baso % (Auto) Not Reportable Lymph # (Auto) Not Reportable [place] # (Auto) Not Reportable Baso # (Auto) Not Reportable Total Counted 100 Seg Neutrophils % 44.0 (38-70) % Lymphocytes % (Manual) 26.0 (25-45) % Monocytes % (Manual) 18.0 H (2-11) % Eosinophils % (Manual) 8.0 H (2-4) % Basophils % (Manual) 4.0 H (0-1) % Neutrophils # (Manual) 1848 L (8704-9742) /uL Nucleated RBCs 1 H ( - 0) #/Diff RBC Morphology See below Anisocytosis 1+ H PT 11.4 (9.4-12.5) SECONDS INR 1.0 (0.9-1.3) APTT 29 (25.1-36.5) SECONDS Sodium 143 (137-145) mmol/L Potassium 3.8 (3.4-5.1) mmol/L Chloride 106 (98-107) mmol/L Carbon Dioxide 29 (22-32) mmol/L BUN 22 H (9-20) mg/dL Creatinine 1.53 H (0.66-1.25) mg/dL Estimated GFR 46 L (>60) mL/min BUN/Creatinine Ratio 14.4 (6-22) Glucose 91 (70-99) mg/dL Calcium 9.3 (8.4-10.2) mg/dL Magnesium 1.6 (1.6-2.3) mg/dL Total Bilirubin 0.3 (0.2-1.3) mg/dL AST 29 (17-59) IU/L ALT 12 (<50) IU/L Alkaline Phosphatase 78 (38-126) U/L Total Creatine Kinase 66 (55-170) U/L Troponin I < 0.012 (0.01-0.034) ng/mL NT-Pro-B Natriuret Pep 474 H (<450) pg/mL Total Protein 7.0 (6.3-8.2) g/dL Albumin 4.0 (3.5-5.0) g/dL Globulin 3.0 (1.7-4.1) g/dL Albumin/Globulin Ratio 1.3 (1.0-2.8) Lipase 87 (23-300) U/L Urine RBC None seen (0-5/HPF) Urine WBC None seen (0-5/HPF) Ur Squamous Epith Cells None seen (0-5/HPF) Urine Bacteria None seen (None) Ur Culture Indicated? Specimen cultured Vol Urine Centrifuged 10ml (spun) Urine Dip Bedside Urine Glucose Negative Bedside Urine Bilirubin - Negative Bedside Urine Ketone - Negative Urine Specific Bee 1.015 Bedside Urine Occult Blood - Negative Bedside Urine pH 6.0 Bedside Urine Protein - Negative Bedside Urine Urobilinogen - Negative Bedside Urine Nitrite - Negative Bedside Urine Leukocytes - Negative Esterase Point of care testing: Urine Dip Bedside Urine Glucose Negative Bedside Urine Bilirubin - Negative Bedside Urine Ketone - Negative Urine Specific Bee 1.015 Bedside Urine Occult Blood - Negative Bedside Urine pH 6.0 Bedside Urine Protein - Negative Bedside Urine Urobilinogen - Negative Bedside Urine Nitrite - Negative Bedside Urine Leukocytes - Negative Esterase ECG Data Attestation: I personally reviewed and interpreted this ECG as follows: Interpretation: Sinus rhythm first-degree AV block, left axis deviation, incomplete right bundle-branch block. Rate of 78 DC 234 QRS of 92 QTC of 465, no acute ST elevation depression noted. Patient has prior for comparison. [facility] Narrative Medical decision making narrative: EKG shows sinus rhythm first-degree AV block, left axis deviation. Labs show white count of 4.2 hemoglobin today is 10 improved from priors 6 5 platelets are 253 also improved today. Coags are negative. Labs show creatinine 1.53 BUN 22 electrolytes are otherwise appropriate. Troponin less than 0.012 with a BNP of 474. Chest x-ray is negative for acute change Head CT shows no acute change Urine is negative Patient had meclizine. Patient had 1000mL bolus normal saline. Patient ambulated entire length of department and feels much improved. He is conversant and states he feels comfortable returning home. After discussion plan for DC home. Discharge Plan Departure Patient Disposition: Home Clinical Impression: Dizziness, Weakness Instructions: Vertigo Activity Restrictions/Additional Instructions: Follow up with your physician. Your workup today shows your white count has a little bit low but improved from prior on April 05, your hemoglobin continues to be improved from your last ER visit with hemoglobin of 10 and a hematocrit of 28 your platelets are appropriate today. Your creatinine is 1.53 consistent with your priors. If you found the meclizine helpful you can take tablet every 6-8 hours as needed. Prescription was sent to [facility]. Return if you have new or worsening symptoms, fevers, severe headaches, sudden vision changes, any difficulty speech or movement, new chest pain or shortness of breath, persistent vomiting, lightheadedness or passing out or other new or concerning changes. Prescriptions: New meclizine 50 mg tablet 50 mg PO BID PRN (Reason: dizziness or vertigo) Qty: 14 0RF No Action allopurinol 100 mg tablet 100 mg PO DAILY Qty: 90 1RF bisoprolol fumarate 10 mg tablet 5 mg PO DAILY Qty: 90 1RF docusate sodium 250 mg capsule 250 mg PO BID PRN (Reason: constipation) Qty: 90 1RF levothyroxine [Synthroid] 150 mcg tablet 75 mcg PO DAILY Qty: 90 3RF mirtazapine 15 mg tablet 15 mg PO BEDTIME Qty: 90 3RF gabapentin 300 mg capsule 300 mg PO BID Qty: 240 3RF multivitamin Tablet 1 tab PO DAILY cholecalciferol (vitamin D3) 25 mcg (1,000 unit) capsule 50 mcg PO DAILY Co Q-10 300 mg capsule 300 mg PO DAILY phenazopyridine 100 mg tablet 100 mg PO TID oxybutynin chloride 10 mg tablet extended release 24hr 10 mg PO DAILY magnesium glycinate 250 mg PO .Nightly lorazepam 0.5 mg tablet 0.5 mg PO DAILY PRN (Reason: anxiety) Qty: 30 5RF rosuvastatin 40 mg tablet 20 mg PO DAILY Qty: 45 3RF furosemide [Lasix] 20 mg tablet 20 mg PO DAILY diclofenac potassium 25 mg capsule 25 mg PO BID Referrals: Bill Carroll MD [Primary Care Provider, Internal Medicine] Stand Alone Forms: Patient Portal/API
--- NOTE | 2025-04-15 09:21 | DI.CT.S_ITS ---
PROCEDURE: CT HEAD/BRAIN WO CON INDICATIONS: weakness, vertigo, bladder ca on chemo TECHNIQUE: Noncontrast 4.5 mm thick angled axial sections acquired from the foramen magnum to the vertex, with coronal and sagittal reformats. For radiation dose reduction, the following was used: automated exposure control, adjustment of mA and/or kV according to patient size. COMPARISON: None. FINDINGS: Image quality: Diagnostic. CSF spaces: Basal cisterns are patent. No extra-axial fluid collections. The ventricles are symmetric in size and shape. Brain: No intracranial bleeds or mass effect. There is cerebral volume loss, with resultant ventricular and sulcal prominence. There are periventricular and deep white matter chronic small vessel ischemic changes. There is intracranial internal carotid artery and vertebral artery atherosclerosis. Skull and face: Calvarium and visualized facial bones appear intact, without suspicious lesions. Sinuses: Visualized sinuses and mastoids are clear. IMPRESSION: No acute intracranial pathology. Dictated by: Jeny Jean MD, PhD on 04/15/2025 at 9:57 Approved by: Jeny Jean MD, PhD on 04/15/2025 at 9:58
[2025-04-15 09:24] LABS: Hematocrit 28.8 % (41-53); Hemoglobin 10.0 g/dL (13.5-17.5); INR 1.0 (0.9-1.3); Mean Corpuscular HGB Conc 34.6 % (30-36); Mean Corpuscular Hemoglobin 32.5 PG (26-34); Mean Corpuscular Volume 93.8 fL (80-100); Platelet Count 253 X10^3/uL (150-400); Prothrombin Time 11.4 SECONDS (9.4-12.5)
[2025-04-15 09:25] LABS: Add Manual Diff / Slide Review YES
[2025-04-15 09:27] LABS: PTT Partial Thromboplastin Tim 29 SECONDS (25.1-36.5)
[2025-04-15 09:29] LABS: Alanine Aminotransferase 12 IU/L (<50); Albumin 4.0 g/dL (3.5-5.0); Albumin Globulin Ratio 1.3 (1.0-2.8); Alkaline Phosphatase 78 U/L (38-126); Blood Urea Nitrogen 22 mg/dL (9-20); Calcium 9.3 mg/dL (8.4-10.2); Carbon Dioxide 29 mmol/L (22-32); Chloride 106 mmol/L (98-107); Creatine Kinase 66 U/L (55-170); Estimated Glomerular Filt Rate 46 mL/min (>60); Globulin 3.0 g/dL (1.7-4.1); Glucose 91 mg/dL (70-99); HEMOLYSIS < 15 (0-50); Lipase 87 U/L (23-300); Magnesium 1.6 mg/dL (1.6-2.3); Sodium 143 mmol/L (137-145); Total Protein 7.0 g/dL (6.3-8.2)
[2025-04-15] MEDS: MECLIZINE HCL 12.5 MG TABLET 50 MG PO (09:29)
--- NOTE | 2025-04-15 09:30 | PC.NURSE ---
Pt feeling weak and more tired. Pts had difficulty waking pt up today. Pt felt weak while in the BR today,fell,denies injury. Pt having some dizziness.
[2025-04-15 09:32] LABS: Potassium 3.8 mmol/L (3.4-5.1)
[2025-04-15 09:39] LABS: Anisocytosis 1+; Basophils Percent Manual 4.0 % (0-1); Eosinophils Percent Manual 8.0 % (2-4); Lymphocytes Percent Manual 26.0 % (25-45); Monocytes Percent Manual 18.0 % (2-11); Neutrophils Absolute Manual 1848 /uL (3000-5900); Segmented Neutrophils Percent 44.0 % (38-70); Total Cells Counted 100
[2025-04-15 09:40] LABS: NT-proBNP (BNP-Adult 18+) 474 pg/mL (<450); Troponin I < 0.012 ng/mL (0.01-0.034)
[2025-04-15] MEDS: SODIUM CHLORIDE 0.9% 500 ML 1000 ML IV (11:15)
--- NOTE | 2025-04-15 12:00 | PC.NURSE ---
Patient desatted to 85% while sleeping, patient was placed on 2L and told to take some deeper breaths to maintain sats above 92%
[2025-04-15 14:21] LABS: Culture Indicated Urine Specimen Cultured
== END 2025-04-15 15:33 | disposition home or self-care (01) ==
PROVIDERS: Emergency Provider Emergency Medicine; PCP Internal Medicine
DX: R42 Dizziness and giddiness (principal); R53.1 Weakness; I44.0 Atrioventricular block, first degree; C67.9 Malignant neoplasm of bladder, unspecified; Z92.21 Personal history of antineoplastic chemotherapy
CPT/HCPCS: 36415; 70450; 71045; 80053; 81003; 81015; 82550; 83690; 83735; 83880; 84484; 85007; 85025; 85610; 85730; 93005; 96360; 99284; 99285

== ENCOUNTER → 2025-05-21 11:09 | Outpatient (CLI) | payer MEDICARE, OTHER, SELFPAY ==
[2025-05-21 12:04] LABS: Hematocrit 31.8 % (41-53); Hemoglobin 11.0 g/dL (13.5-17.5); Mean Corpuscular HGB Conc 34.4 % (30-36); Mean Corpuscular Hemoglobin 32.5 PG (26-34); Mean Corpuscular Volume 94.4 fL (80-100); Platelet Count 137 X10^3/uL (150-400)
[2025-05-21 12:55] LABS: Alanine Aminotransferase 13 IU/L (<50); Albumin 4.1 g/dL (3.5-5.0); Albumin Globulin Ratio 1.5 (1.0-2.8); Alkaline Phosphatase 74 U/L (38-126); Blood Urea Nitrogen 28 mg/dL (9-20); Calcium 9.6 mg/dL (8.4-10.2); Carbon Dioxide 29 mmol/L (22-32); Chloride 103 mmol/L (98-107); Estimated Glomerular Filt Rate 45 mL/min (>60); Globulin 2.8 g/dL (1.7-4.1); Glucose 112 mg/dL (70-99); HEMOLYSIS < 15 (0-50); Magnesium 1.8 mg/dL (1.6-2.3); Potassium 4.6 mmol/L (3.4-5.1); Sodium 139 mmol/L (137-145); Total Protein 6.9 g/dL (6.3-8.2); Uric Acid 6.5 mg/dL (3.5-8.5)
[2025-05-21 13:14] LABS: Prostate Specific Antigen < 0.064 ng/mL (0.10-4.00)
== END ==
PROVIDERS: PCP Internal Medicine; Referring Provider Internal Medicine; Visit Provider Internal Medicine
DX: R63.4 Abnormal weight loss (principal); M1A.9XX0 Chronic gout, unspecified, without tophus (tophi); R79.0 Abnormal level of blood mineral; Z85.46 Personal history of malignant neoplasm of prostate
CPT/HCPCS: 36415; 80053; 83735; 84153; 84550; 85027

== ENCOUNTER 2025-06-07 08:49 | Emergency (ER) | payer MEDICARE, OTHER, SELFPAY ==
[2025-06-07] VITALS (9 sets, daily range): BP systolic 116–157; BP diastolic 68–75; PULSE 74–95; RESP 17–22; TEMP 37–37.1; O2SAT 93–97; BMI 22.4
--- NOTE | 2025-06-07 08:55 | DI.RAD.S_ITS ---
PROCEDURE: XR CHEST 1V INDICATIONS: fever TECHNIQUE: One view of the chest was acquired. COMPARISON: [facility], CR, XR CHEST 1V, 04/15/2025, 9:16. FINDINGS: Surgical changes and devices: Right-sided Port-A-Cath Lungs and pleura: Lungs are clear. No pleural effusions or pneumothorax. Mediastinum: Mediastinal contours appear normal. Heart size is normal. Bones and chest wall: No suspicious bony lesions. Overlying soft tissues appear unremarkable. IMPRESSION: No acute cardiopulmonary abnormality is seen. Approved by: Pascual Quach M.D. on 06/07/2025 at 9:30
--- NOTE | 2025-06-07 08:55 | EKG_ITS ---
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
--- NOTE | 2025-06-07 08:58 | ED.AMS ---
HPI - Altered Mental Status General Chief Complaint: Weakness Stated Complaint: lethargy, fever, ca pt Time Seen by Provider: 06/07/25 08:55 History of Present Illness HPI narrative: Patient is an 79-year-old male history of hypertension, coronary artery disease, hyperlipidemia bladder cancer currently undergoing chemotherapy at [facility] it received his last chemo therapy 2 days ago presenting today with altered mental status hallucinations and fever. He denies any cough shortness of breath abdominal pain nausea vomiting or chest pain. He is awake alert and oriented here able to follow commands. Found To be febrile with a EMS. reports that he was very weak and confused this morning unable to sit up at the bed side to change his sure he was unable to lift his legs. She took a temperature twice the 1st 1 was 100.4 the 2nd 1 was 101. Related Data Home Medications ?Medication ?Instructions ?Recorded ?Confirmed cholecalciferol (vitamin D3) 25 50 mcg PO DAILY 05/16/23 05/28/25 mcg (1,000 unit) capsule magnesium glycinate 250 mg PO .Nightly 02/04/25 05/28/25 furosemide 20 mg tablet (Lasix) 20 mg PO DAILY 02/27/25 05/28/25 Previous Rx's ?Medication ?Instructions ?Recorded rosuvastatin 40 mg tablet 20 mg (1/2 x 40 mg) PO DAILY #45 12/22/24 tabs levothyroxine 150 mcg tablet 75 mcg (1/2 x 150 mcg) PO DAILY 02/23/25 (Synthroid) #90 tabs allopurinol 100 mg tablet 100 mg PO DAILY #90 tabs 05/08/25 bisoprolol fumarate 10 mg tablet 5 mg (1/2 x 10 mg) PO DAILY #90 05/08/25 tabs gabapentin 300 mg capsule 300 mg PO BID #240 caps 05/08/25 meclizine 50 mg tablet 50 mg PO BID PRN dizziness or 05/08/25 vertigo #30 tabs mirtazapine 30 mg tablet 30 mg PO BEDTIME #90 tabs 05/27/25 levofloxacin 750 mg tablet 750 mg PO DAILY 5 days #5 tabs 06/07/25 Allergies Allergy/AdvReac Type Severity Reaction Status Date / Time No Known Drug Allergies Allergy Verified 05/28/25 11:28 Patient History Medical History Acquired hypothyroidism (~1994) Bladder cancer Bone spur (~2019) Cataracts, bilateral (~2016) Chicken pox Coronary artery calcification Diverticular disease (~2014) Essential hypertension (~1989) Generalized anxiety disorder Gout History of prostate cancer (~2014) Insomnia Mixed hyperlipidemia (~1989) Seasonal affective disorder Slow transit constipation Weight loss, abnormal Surgical History Anesthesia Dupuytren's contracture History of radical prostatectomy (~2014) Family History Father Toan's granulomatosis Mother RPGN (rapidly progressive glomerulonephritis) Brother Hydrocephalus Grandfather History of heart disease ASCVD (arteriosclerotic cardiovascular disease) Grandmother Dementia Grandmother Cancer Social History Smoking Status: Never smoker Alcohol type: wine Exam Initial Vital Signs Initial Vital Signs: Vital Signs Pulse Rate 94 H 06/07/25 08:53 Blood Pressure 157/75 H 06/07/25 08:53 Pulse Oximetry 95 06/07/25 08:53 GENERAL: Alert pleasant 79-year-old male and in no acute distress. HEENT: Head atraumatic,EOMI, pupils reactive, face symmetric, moist mucous membranes CARDIOVASCULAR: Regular rate and rhythm without murmurs, rubs or gallops. RESPIRATORY: Breath sounds equal bilaterally, no wheezes rales or rhonchi. ABDOMEN: Soft, nontender. Normoactive bowel sounds all 4 quadrants. No guarding or rebound. No peritoneal signs EXTREMITIES: Normal range of motion, no clubbing or edema. Neurovascularly intact NEUROLOGICAL: Alert and oriented x4.Normal gait and speech. Cranial nerves II through XII grossly intact. [employer] strength equal bilaterally SKIN: Warm, dry, no laceration, no petechiae, no rashes or lesions. Course Orders Ordered: ED Orders 06/07/25 08:55 XR chest 1V Stat EKG-12 Lead Stat 06/07/25 09:10 Complete Blood Count AUTO DIFF Stat Comprehensive Metabolic Panel Stat Lactate (Lactic Acid) Stat NT-proBNP (BNP-Adult 18+) Stat Procalcitonin Stat Troponin & CK Cardiac Panel Stat 06/07/25 09:15 Covid-19 + FLU A/B + RSV - PCR Stat 06/07/25 09:28 Blood Culture Stat 06/07/25 09:55 Urinalysis and Microscopic Stat Discontinued Medications Ceftriaxone Sodium 2,000 mg/ (Sodium Chloride) 100 mls @ 200 mls/hr IV NOW ONE Stop: 06/07/25 10:15 Last Infusion: 06/07/25 11:22 Dose: Infused Documented By: Admin: 06/07/25 10:38 Dose: 200 mls/hr Documented By: Vital Signs Vital signs: Vital Signs - 8 hr 06/07/25 08:53 06/07/25 08:53 06/07/25 09:00 Temperature Pulse Rate 94 H 93 H Respiratory Rate Blood Pressure 157/75 H Pulse Oximetry 95 93 Oxygen Delivery Method Oxygen Flow Rate 06/07/25 09:00 06/07/25 09:02 06/07/25 09:30 Temperature 98.6 F Pulse Rate 95 H 92 H Respiratory Rate 18 21 Blood Pressure 144/69 H 137/75 Pulse Oximetry 94 93 Oxygen Delivery Method Room Air Oxygen Flow Rate 06/07/25 09:30 06/07/25 10:00 06/07/25 10:30 Temperature Pulse Rate 94 H 92 H Respiratory Rate 22 19 Blood Pressure 141/71 H Pulse Oximetry 94 93 Oxygen Delivery Method Oxygen Flow Rate 06/07/25 11:00 06/07/25 11:22 06/07/25 11:50 Temperature 98.8 F 98.8 F Pulse Rate 94 H 74 Respiratory Rate 22 17 Blood Pressure 116/68 Pulse Oximetry 93 97 Oxygen Delivery Method Room Air Oxygen Flow Rate 0 MDM - Altered Mental Status Lab Data 06/07/25 09:10 06/07/25 09:10 Labs: Lab Results 06/07/25 06/07/25 06/07/25 Range/Units 09:10 09:15 09:55 WBC 2.6 L (4.5-11.0) X10^3/uL RBC 3.57 L (4.5-5.9) X10^6/uL Hgb 11.4 L (13.5-17.5) g/dL Hct 33.4 L (41-53) % MCV 93.6 (80-100) fL MCH 32.1 (26-34) PG MCHC 34.2 (30-36) % RDW 12.9 (11.6-14.8) % Plt Count 107 L (150-400) X10^3/uL Neut % (Auto) 78.7 H (50-75) % Lymph % (Auto) 11.1 L (25-40) % [place] % (Auto) 9.4 (3-14) % Eos % (Auto) 0.0 L (2-4) % Baso % (Auto) 0.8 (0-2) % Neut # (Auto) 2000 (4803-9974) /uL Lymph # (Auto) 300 L (3232-5597) /uL [place] # (Auto) 200 (0-900) /uL Eos # (Auto) 0 (0-450) /uL Baso # (Auto) 0 (0-100) /uL Sodium 135 L (137-145) mmol/L Potassium 3.7 (3.4-5.1) mmol/L Chloride 99 (98-107) mmol/L Carbon Dioxide 25 (22-32) mmol/L BUN 28 H (9-20) mg/dL Creatinine 1.51 H (0.66-1.25) mg/dL Estimated GFR 46 L (>60) mL/min BUN/Creatinine Ratio 18.5 (6-22) Glucose 124 H (70-99) mg/dL Lactate 1.9 (0.7-2.1) mmol/L Calcium 9.4 (8.4-10.2) mg/dL Total Bilirubin 0.6 (0.2-1.3) mg/dL AST 37 (17-59) IU/L ALT 22 (<50) IU/L Alkaline Phosphatase 73 (38-126) U/L Total Creatine Kinase 82 (55-170) U/L Troponin I < 0.012 (0.01-0.034) ng/mL NT-Pro-B Natriuret Pep 1090 H (<450) pg/mL Total Protein 7.5 (6.3-8.2) g/dL Albumin 4.4 (3.5-5.0) g/dL Globulin 3.1 (1.7-4.1) g/dL Albumin/Globulin Ratio 1.4 (1.0-2.8) Procalcitonin 1.28 H (<0.5) ng/mL Urine Color Yellow Urine Appearance Clear Urine pH 5.5 (4.5-8.0) Ur Specific [place] <=1.005 (1.000-1.035) Urine Protein Negative (Negative) Urine Glucose (UA) Negative (Negative) g/dL Urine Ketones Negative (NEGATIVE) Urine Occult Blood Trace-intact (Negative) Urine Nitrate Negative (Negative) Urine Bilirubin Negative (NEGATIVE) Urine Urobilinogen 0.2 (0.2) E.U./dL Ur Leukocyte Esterase Negative (NEGATIVE) Urine RBC 0-1/hpf (0-5/HPF) Urine WBC None seen (0-5/HPF) Ur Squamous Epith Cells 0-1 /hpf (0-5/HPF) Urine Bacteria None seen (None) Ur Culture Indicated? Cult not indicated Vol Urine Centrifuged 10ml (spun) SARS-CoV-2 (PCR) Negative (Negative) Influenza A (RT-PCR) Flu a negative (NEGATIVE) Influenza B (RT-PCR) Flu b negative (NEGATIVE) RSV (PCR) Negative (Negative) Imaging Data Chest x-ray: Radiologist's Impression: PROCEDURE: XR CHEST 1V INDICATIONS: fever TECHNIQUE: One view of the chest was acquired. COMPARISON: [facility], , XR CHEST 1V, 04/15/2025, 9:16. FINDINGS: Surgical changes and devices: Right-sided Port-A-Cath Lungs and pleura: Lungs are clear. No pleural effusions or pneumothorax. Mediastinum: Mediastinal contours appear normal. Heart size is normal. Bones and chest wall: No suspicious bony lesions. Overlying soft tissues appear unremarkable. IMPRESSION: No acute cardiopulmonary abnormality is seen. Approved by: Pascual Quach M.D. on 06/07/2025 at 9:30 ECG Data Attestation: I personally reviewed and interpreted this ECG as follows: Prior ECG tracings: available for review Interpretation: Sinus rhythm rate 92 CO interval 208 QRS [address] changes MDM Narrative Medical decision making narrative: MDM CC: Fever or weakness Complicating co-morbidities: Bladder cancer undergoing chemotherapy Data collected from: Patient Medical records reviewed: PCP nose reviewed latest from 05/28/2025 Differential considered: Sepsis, Exam documented above, pertinent findings include: Alert well-appearing 79-year-old male neurovascularly intact no evidence of peripheral edema or fluid overload abdomen is soft without peritoneal signs breath sounds are clear without respiratory distress Lab Test results independently reviewed as above. Pertinent findings: CBC WBC 2.6 with absolute neutrophils of 2000 Lactate 1.9, procalcitonin 1.28 CMP electrolytes within normal limits creatinine at baseline 1.51 Bilirubin liver enzymes within normal limits Troponin negative, BNP 1090 Viral panel negative Urinalysis negative for UTI Independently reviewed EKG as above Sinus rhythm without ischemia Imaging studies independently reviewed: Chest x-ray no acute cardiopulmonary process Consultations: [ ] Treatments: Rocephin 2 g Re-evaluations: Patient awake alert oriented at bedside reports that he seems to be back to his baseline Discussion: Patient is a 79-year-old male undergoing chemo and radiation he is due to have both of those again tomorrow. He is not neutropenic but does have leukopenia of 2.6. He has a normal lactic acid 1.9 he does have an elevated procalcitonin of 1.28. No source of infection is found. We will prophylactically put him on antibiotics blood cultures are pending. Discussion with and patient at bedside he is back to his normal state of health. He is standing at the bedside using the urinal overall much improvement. Discussed possibility of admission however both feel comfortable going home discussed strict return precautions. We will empirically put him on antibiotics while waiting for blood cultures to return. But he really does not have any evidence of sepsis vitals are stable normal lactic acid just an elevated procalcitonin unclear if this is from infection versus chemo/radiation Discharge Plan Departure Patient Disposition: Home Clinical Impression: Fever, Drug-induced leukopenia Activity Restrictions/Additional Instructions: *You have been diagnosed with fever *What to do: It is unclear source of fever. However we will start you on antibiotics prophylactically. You will need to talk to your oncology team about continuing radiation and chemotherapy this week *Continue to take medications as directed Levaquin 750 mg once a day for 5 days *Follow up with your primary care provider in 2-3 days or call [phone] Call your oncologist tomorrow *Return to ER if you should have increasing weakness confusion not tolerating fluids or food or any new, worsening or concerning symptoms Prescriptions: New levofloxacin 750 mg tablet 750 mg PO DAILY 5 Days Qty: 5 0RF No Action levothyroxine [Synthroid] 150 mcg tablet 75 mcg PO DAILY Qty: 90 3RF bisoprolol fumarate 10 mg tablet 5 mg PO DAILY Qty: 90 1RF allopurinol 100 mg tablet 100 mg PO DAILY Qty: 90 3RF meclizine 50 mg tablet 50 mg PO BID PRN (Reason: dizziness or vertigo) Qty: 30 3RF gabapentin 300 mg capsule 300 mg PO BID Qty: 240 3RF mirtazapine 30 mg tablet 30 mg PO BEDTIME Qty: 90 3RF cholecalciferol (vitamin D3) 25 mcg (1,000 unit) capsule 50 mcg PO DAILY magnesium glycinate 250 mg PO .Nightly rosuvastatin 40 mg tablet 20 mg PO DAILY Qty: 45 3RF furosemide [Lasix] 20 mg tablet 20 mg PO DAILY Referrals: Bill aCrroll MD [Primary Care Provider, Internal Medicine] Stand Alone Forms: Patient Portal/API
[2025-06-07 09:39] LABS: Add Manual Diff / Slide Review NO; Hematocrit 33.4 % (41-53); Hemoglobin 11.4 g/dL (13.5-17.5); Lymphocytes Absolute Auto 300 /uL (1100-4500); Mean Corpuscular HGB Conc 34.2 % (30-36); Mean Corpuscular Hemoglobin 32.1 PG (26-34); Mean Corpuscular Volume 93.6 fL (80-100); Platelet Count 107 X10^3/uL (150-400)
[2025-06-07 09:47] LABS: Lactate (Lactic Acid) 1.9 mmol/L (0.7-2.1)
[2025-06-07 09:48] LABS: Alanine Aminotransferase 22 IU/L (<50); Albumin 4.4 g/dL (3.5-5.0); Albumin Globulin Ratio 1.4 (1.0-2.8); Alkaline Phosphatase 73 U/L (38-126); Blood Urea Nitrogen 28 mg/dL (9-20); Calcium 9.4 mg/dL (8.4-10.2); Carbon Dioxide 25 mmol/L (22-32); Chloride 99 mmol/L (98-107); Creatine Kinase 82 U/L (55-170); Estimated Glomerular Filt Rate 46 mL/min (>60); Globulin 3.1 g/dL (1.7-4.1); Glucose 124 mg/dL (70-99); HEMOLYSIS < 15 (0-50); Potassium 3.7 mmol/L (3.4-5.1); Sodium 135 mmol/L (137-145); Total Protein 7.5 g/dL (6.3-8.2)
[2025-06-07 09:58] LABS: NT-proBNP (BNP-Adult 18+) 1090 pg/mL (<450)
[2025-06-07 10:00] LABS: Troponin I < 0.012 ng/mL (0.01-0.034)
[2025-06-07 10:05] LABS: Procalcitonin 1.28 ng/mL (<0.5)
[2025-06-07 10:11] LABS: Appearance Urine UA CLEAR; Bilirubin Urine UA NEGATIVE (NEGATIVE); Color Urine UA YELLOW; Glucose Urine UA NEGATIVE (Negative); Ketones Urine UA NEGATIVE (NEGATIVE); Leukocyte Esterase Urine UA NEGATIVE (NEGATIVE); Nitrite Urine UA NEGATIVE (Negative); Occult Blood Urine UA TRACE-INTACT (Negative); Protein Urine UA NEGATIVE (Negative); Specific Gravity Urine UA <=1.005 (1.000-1.035); Urobilinogen Urine UA 0.2 E.U./dL (0.2); pH Urine UA 5.5 (4.5-8.0)
[2025-06-07 10:14] LABS: Influenza A - CEPHEID Flu A NEGATIVE (NEGATIVE); Influenza B - CEPHEID Flu B NEGATIVE (NEGATIVE)
[2025-06-07 10:17] LABS: COVID-19 CEPHEID 4-PLEX PCR Negative (Negative)
[2025-06-07 10:31] LABS: Culture Indicated Urine Cult Not Indicated
[2025-06-07] MEDS: cefTRIAXone 2,000 MG in SODIUM CHLORIDE 0.9% 100 ML 200 MG IV (10:38)
== END 2025-06-07 11:52 | disposition home or self-care (01) ==
PROVIDERS: Emergency Provider Emergency Medicine; PCP Internal Medicine
DX: R50.9 Fever, unspecified (principal); R44.3 Hallucinations, unspecified; D70.2 Other drug-induced agranulocytosis; T50.905A Adverse effect of unspecified drugs, medicaments and biological substances, initial encounter; C67.9 Malignant neoplasm of bladder, unspecified; R41.82 Altered mental status, unspecified; Z86.79 Personal history of other diseases of the circulatory system
CPT/HCPCS: 36415; 71045; 80053; 81001; 82550; 83605; 83880; 84145; 84484; 85025; 87040; 87637; 93005; 96365; 99284; J0696; J7050

== ENCOUNTER 2025-06-09 17:57 | Emergency (ER) | payer MEDICARE, OTHER, SELFPAY ==
[2025-06-09] VITALS (9 sets, daily range): BP systolic 128–145; BP diastolic 64–73; PULSE 93–118; RESP 9–19; TEMP 37.2; O2SAT 94–98; BMI 22.4
--- NOTE | 2025-06-09 18:09 | DI.RAD.S_ITS ---
PROCEDURE: XR CHEST 1V INDICATIONS: sepsis TECHNIQUE: One view of the chest was acquired. COMPARISON: [facility], CR, XR CHEST 1V, 06/07/2025, 8:59. [facility], CR, XR CHEST 1V, 04/15/2025, 9:16. FINDINGS: Surgical changes and devices: Right chest wall port tip projects over the low SVC. Lungs and pleura: Lungs are clear. No pleural effusions or pneumothorax. Streaky left basilar atelectasis. Mediastinum: Mediastinal contours appear normal. Heart size is normal. Bones and chest wall: No suspicious bony lesions. Overlying soft tissues appear unremarkable. IMPRESSION: No acute cardiopulmonary abnormality is seen. Dictated by: Marcial Conley M.D. on 06/09/2025 at 19:35 Approved by: Marcial Conley M.D. on 06/09/2025 at 19:35
--- NOTE | 2025-06-09 18:09 | EKG_ITS ---
[place] [id number] [place] [id number] Test Date: 2025-06-09 Pat Name: Cody Carranza Department: [facility] Room: Gender: Male Buck Swamper: KATELYN : 1945 Requested By: Order Number: [id number] Reading MD: James Merlos Measurements Intervals [place] Rate: 105 P: 30 ND: 202 QRS: -67 QRSD: 86 T: 18 QT: 374 QTc: 494 Interpretive Statements Sinus tachycardia Left axis deviation Nonspecific ST and T wave abnormality Electronically Signed On 06-09-2025 19:05:29 PST by James Merlos
--- NOTE | 2025-06-09 18:11 | ED.WEAKNESS ---
HPI - Weakness <Sadia Dorantes PA-C - Last Filed: 06/09/25 18:20> General Chief complaint: Weakness Stated complaint: PC ref, took extra Abx 4 pills in 24hrs Time Seen by Provider: 06/09/25 18:08 Source: patient and family Mode of arrival: Ambulatory History of Present Illness HPI Narrative: Mr. Carranza is a pleasant 79-year-old male with a past medical history of bladder cancer currently undergoing a chemotherapy, HTN, CAD, HLD who presents to the emergency department after accidentally consuming four 750mg levofloxacin pills in the last 24 hours. Patient is here with his who contirbutes to the history. On 06/07/2025, the patient came to the emergency department with altered mental status, hallucinations and a fever. Sepsis workup was initiated and the patient was ultimately discharged home on levofloxacin. Today when the patient's went to give him his dose of levofloxacin she noticed that was only 1 pill left in the bottle and therefore the patient took a total of 4 pills in the last 24 hours. The patient states that his memory is not right and he vaguely remembers taking the pills. He reports that he overall feels horrible he feels weak, he feels tremors in his hand, is constipated with mild abdominal pain and bilateral calf pain that started in the left calf today and has since spread to the right calf. No fever or chills today. No chest pain, shortness of breath. He attempted to go to chemotherapy today but they would not because of his constipation. Related Data Home Medications ?Medication ?Instructions ?Recorded ?Confirmed cholecalciferol (vitamin D3) 25 50 mcg PO DAILY 05/16/23 05/28/25 mcg (1,000 unit) capsule magnesium glycinate 250 mg PO .Nightly 02/04/25 05/28/25 furosemide 20 mg tablet (Lasix) 20 mg PO DAILY 02/27/25 05/28/25 Previous Rx's ?Medication ?Instructions ?Recorded rosuvastatin 40 mg tablet 20 mg (1/2 x 40 mg) PO DAILY #45 12/22/24 tabs levothyroxine 150 mcg tablet 75 mcg (1/2 x 150 mcg) PO DAILY 02/23/25 (Synthroid) #90 tabs allopurinol 100 mg tablet 100 mg PO DAILY #90 tabs 05/08/25 bisoprolol fumarate 10 mg tablet 5 mg (1/2 x 10 mg) PO DAILY #90 05/08/25 tabs gabapentin 300 mg capsule 300 mg PO BID #240 caps 05/08/25 meclizine 50 mg tablet 50 mg PO BID PRN dizziness or 05/08/25 vertigo #30 tabs mirtazapine 30 mg tablet 30 mg PO BEDTIME #90 tabs 05/27/25 levofloxacin 750 mg tablet 750 mg PO DAILY 5 days #5 tabs 06/07/25 levofloxacin 750 mg tablet 750 mg PO DAILY #2 tabs 06/09/25 Allergies Allergy/AdvReac Type Severity Reaction Status Date / Time No Known Drug Allergies Allergy Verified 05/28/25 11:28 Patient History <Sadia Dorantes PA-C - Last Filed: 06/09/25 18:20> Medical History Acquired hypothyroidism (~1994) Bladder cancer Bone spur (~2019) Cataracts, bilateral (~2016) Chicken pox Coronary artery calcification Diverticular disease (~2014) Essential hypertension (~1989) Generalized anxiety disorder Gout History of prostate cancer (~2014) Insomnia Mixed hyperlipidemia (~1989) Seasonal affective disorder Slow transit constipation Weight loss, abnormal Surgical History Anesthesia Dupuytren's contracture History of radical prostatectomy (~2014) Family History Father Toan's granulomatosis Mother RPGN (rapidly progressive glomerulonephritis) Brother Hydrocephalus Grandfather History of heart disease ASCVD (arteriosclerotic cardiovascular disease) Grandmother Dementia Grandmother Cancer Social History Smoking Status: Never smoker Smoking Status: Never smoker Alcohol type: wine Exam <Sadia Dorantes PA-C - Last Filed: 06/09/25 18:20> Initial Vital Signs Initial Vital Signs: Vital Signs Temperature 98.9 F 06/09/25 18:00 Pulse Rate 118 H 06/09/25 18:00 Respiratory Rate 18 06/09/25 18:00 Blood Pressure 145/73 H 06/09/25 18:00 Pulse Oximetry 98 06/09/25 18:00 Oxygen Delivery Method Room Air 06/09/25 18:00 <Viraj Barrett MD - Last Filed: 06/09/25 23:44> Narrative Exam Narrative: Appears to be in no distress alert fully oriented. Tachycardic at triage, tachycardia improved. Normocephalic and atraumatic pupils are equal round and reactive extraocular movements are intact no facial droop or asymmetry oral mucosa is moist Neck is supple Lungs are clear Cardiac regular rhythm rate no murmur rub or gallop Abdomen normal bowel sounds soft and nontender Moving all 4 extremities spontaneously and equally Initial Vital Signs Initial Vital Signs: Vital Signs Temperature 98.9 F 06/09/25 18:00 Pulse Rate 118 H 06/09/25 18:00 Respiratory Rate 18 06/09/25 18:00 Blood Pressure 145/73 H 06/09/25 18:00 Pulse Oximetry 98 06/09/25 18:00 Oxygen Delivery Method Room Air 06/09/25 18:00 Course <Sadia Dorantes PA-C - Last Filed: 06/09/25 18:20> Orders Ordered: ED Orders 06/09/25 18:09 XR chest 1V Stat EKG-12 Lead Stat 06/09/25 18:25 Blood Culture Stat Complete Blood Count AUTO DIFF Stat Comprehensive Metabolic Panel Stat Lactate (Lactic Acid) Stat Procalcitonin Stat 06/09/25 20:15 CT head/brain wo con Stat 06/09/25 21:17 EKG-12 Lead Stat Vital Signs Vital signs: Vital Signs - 8 hr 06/09/25 18:00 06/09/25 18:30 06/09/25 18:39 Temperature 98.9 F Pulse Rate 118 H 104 H Respiratory Rate 18 Blood Pressure 145/73 H 132/69 Pulse Oximetry 98 95 Oxygen Delivery Method Room Air 06/09/25 18:39 06/09/25 19:00 06/09/25 19:00 Temperature Pulse Rate 102 H 100 H Respiratory Rate 15 18 Blood Pressure 128/64 Pulse Oximetry 94 94 Oxygen Delivery Method 06/09/25 19:32 06/09/25 20:00 06/09/25 20:30 Temperature Pulse Rate 113 H 98 H 93 H Respiratory Rate 19 14 17 Blood Pressure Pulse Oximetry 96 96 95 Oxygen Delivery Method 06/09/25 21:00 06/09/25 21:30 Temperature Pulse Rate 93 H 94 H Respiratory Rate 9 L 14 Blood Pressure Pulse Oximetry 96 94 Oxygen Delivery Method <Viraj Barrett MD - Last Filed: 06/09/25 23:44> Orders Ordered: ED Orders 06/09/25 18:09 XR chest 1V Stat EKG-12 Lead Stat 06/09/25 18:25 Blood Culture Stat Complete Blood Count AUTO DIFF Stat Comprehensive Metabolic Panel Stat Lactate (Lactic Acid) Stat Procalcitonin Stat 06/09/25 20:15 CT head/brain wo con Stat 06/09/25 21:17 EKG-12 Lead Stat Vital Signs Vital signs: Vital Signs - 8 hr 06/09/25 18:00 06/09/25 18:30 06/09/25 18:39 Temperature 98.9 F Pulse Rate 118 H 104 H Respiratory Rate 18 Blood Pressure 145/73 H 132/69 Pulse Oximetry 98 95 Oxygen Delivery Method Room Air 06/09/25 18:39 06/09/25 19:00 06/09/25 19:00 Temperature Pulse Rate 102 H 100 H Respiratory Rate 15 18 Blood Pressure 128/64 Pulse Oximetry 94 94 Oxygen Delivery Method 06/09/25 19:32 06/09/25 20:00 06/09/25 20:30 Temperature Pulse Rate 113 H 98 H 93 H Respiratory Rate 19 14 17 Blood Pressure Pulse Oximetry 96 96 95 Oxygen Delivery Method 06/09/25 21:00 06/09/25 21:30 Temperature Pulse Rate 93 H 94 H Respiratory Rate 9 L 14 Blood Pressure Pulse Oximetry 96 94 Oxygen Delivery Method MDM - Weakness <Sadia Dorantes PA-C - Last Filed: 06/09/25 18:20> Lab Data 06/09/25 18:25 06/09/25 18:25 Labs: Lab Results 06/09/25 Range/Units 18:25 WBC 4.3 L (4.5-11.0) X10^3/uL RBC 3.28 L (4.5-5.9) X10^6/uL Hgb 10.5 L (13.5-17.5) g/dL Hct 30.9 L (41-53) % MCV 94.3 (80-100) fL MCH 32.2 (26-34) PG MCHC 34.1 (30-36) % RDW 13.0 (11.6-14.8) % Plt Count 111 L (150-400) X10^3/uL Neut % (Auto) 81.4 H (50-75) % Lymph % (Auto) 8.5 L (25-40) % [place] % (Auto) 9.3 (3-14) % Eos % (Auto) 0.5 L (2-4) % Baso % (Auto) 0.3 (0-2) % Neut # (Auto) 3500 (1119-6422) /uL Lymph # (Auto) 400 L (6567-6704) /uL [place] # (Auto) 400 (0-900) /uL Eos # (Auto) 0 (0-450) /uL Baso # (Auto) 0 (0-100) /uL Sodium 137 (137-145) mmol/L Potassium 3.6 (3.4-5.1) mmol/L Chloride 101 (98-107) mmol/L Carbon Dioxide 28 (22-32) mmol/L BUN 32 H (9-20) mg/dL Creatinine 1.53 H (0.66-1.25) mg/dL Estimated GFR 46 L (>60) mL/min BUN/Creatinine Ratio 20.9 (6-22) Glucose 146 H (70-99) mg/dL Lactate 1.7 (0.7-2.1) mmol/L Calcium 9.3 (8.4-10.2) mg/dL Total Bilirubin 0.4 (0.2-1.3) mg/dL AST 33 (17-59) IU/L ALT 21 (<50) IU/L Alkaline Phosphatase 65 (38-126) U/L Total Protein 7.1 (6.3-8.2) g/dL Albumin 4.1 (3.5-5.0) g/dL Globulin 3.0 (1.7-4.1) g/dL Albumin/Globulin Ratio 1.4 (1.0-2.8) Procalcitonin 0.560 H (<0.5) ng/mL <Viraj Barrett MD - Last Filed: 06/09/25 23:44> Lab Data Lab results narrative: White count is improved today. Chemistries are reassuring creatinine is approximately at baseline. Has mild thrombocytopenia. Labs: Lab Results 06/09/25 Range/Units 18:25 WBC 4.3 L (4.5-11.0) X10^3/uL RBC 3.28 L (4.5-5.9) X10^6/uL Hgb 10.5 L (13.5-17.5) g/dL Hct 30.9 L (41-53) % MCV 94.3 (80-100) fL MCH 32.2 (26-34) PG MCHC 34.1 (30-36) % RDW 13.0 (11.6-14.8) % Plt Count 111 L (150-400) X10^3/uL Neut % (Auto) 81.4 H (50-75) % Lymph % (Auto) 8.5 L (25-40) % [place] % (Auto) 9.3 (3-14) % Eos % (Auto) 0.5 L (2-4) % Baso % (Auto) 0.3 (0-2) % Neut # (Auto) 3500 (5205-6162) /uL Lymph # (Auto) 400 L (6021-8858) /uL [place] # (Auto) 400 (0-900) /uL Eos # (Auto) 0 (0-450) /uL Baso # (Auto) 0 (0-100) /uL Sodium 137 (137-145) mmol/L Potassium 3.6 (3.4-5.1) mmol/L Chloride 101 (98-107) mmol/L Carbon Dioxide 28 (22-32) mmol/L BUN 32 H (9-20) mg/dL Creatinine 1.53 H (0.66-1.25) mg/dL Estimated GFR 46 L (>60) mL/min BUN/Creatinine Ratio 20.9 (6-22) Glucose 146 H (70-99) mg/dL Lactate 1.7 (0.7-2.1) mmol/L Calcium 9.3 (8.4-10.2) mg/dL Total Bilirubin 0.4 (0.2-1.3) mg/dL AST 33 (17-59) IU/L ALT 21 (<50) IU/L Alkaline Phosphatase 65 (38-126) U/L Total Protein 7.1 (6.3-8.2) g/dL Albumin 4.1 (3.5-5.0) g/dL Globulin 3.0 (1.7-4.1) g/dL Albumin/Globulin Ratio 1.4 (1.0-2.8) Procalcitonin 0.560 H (<0.5) ng/mL Imaging Data CT scan - head: My Impression: Independently viewed CT head, no acute findings Radiologist Impression: Radiology report reviewed, no acute abnormality ECG Data Interpretation: EKG shows normal sinus rhythm no acute ST segment changes and no QTC prolongation MDM Narrative Medical decision making narrative: 79-year-old male being treated for bladder cancer who has a baseline significant forgetfulness. He took 4 levofloxacin tablets over 24 hours. Isn't controlled consulted did not think this was likely to be a toxic ingestion, they did mention checking for QTC prolongation which was not present. Had some concern over some calf pain, did not have swelling in his calves plantar flexion in the ankles was intact. Patient did not want to have a study for DVT. I do not think he has any tendinopathy. We will continue the levofloxacin at the recommendation of poison control this will be given next approximately 24 hours after his last dose of levofloxacin. He is to follow up with his outpatient care team soon. Discharge Plan Departure Patient Disposition: Home Clinical Impression: Accidental drug ingestion Qualifiers: Encounter type: initial encounter Qualified Code(s): T50.901A - Poisoning by unspecified drugs, medicaments and biological substances, accidental (unintentional), initial encounter Activity Restrictions/Additional Instructions: Continue Levaquin, your next dose should be tomorrow afternoon. Recheck with your regular outpatient team soon, return to emergency department for fevers shortness of breath chest pain or other acute symptoms. Prescriptions: New levofloxacin 750 mg tablet 750 mg PO DAILY Qty: 2 0RF No Action levothyroxine [Synthroid] 150 mcg tablet 75 mcg PO DAILY Qty: 90 3RF bisoprolol fumarate 10 mg tablet 5 mg PO DAILY Qty: 90 1RF allopurinol 100 mg tablet 100 mg PO DAILY Qty: 90 3RF meclizine 50 mg tablet 50 mg PO BID PRN (Reason: dizziness or vertigo) Qty: 30 3RF gabapentin 300 mg capsule 300 mg PO BID Qty: 240 3RF mirtazapine 30 mg tablet 30 mg PO BEDTIME Qty: 90 3RF cholecalciferol (vitamin D3) 25 mcg (1,000 unit) capsule 50 mcg PO DAILY magnesium glycinate 250 mg PO .Nightly rosuvastatin 40 mg tablet 20 mg PO DAILY Qty: 45 3RF levofloxacin 750 mg tablet 750 mg PO DAILY 5 Days Qty: 5 0RF furosemide [Lasix] 20 mg tablet 20 mg PO DAILY Referrals: Bill Carroll MD [Primary Care Provider, Internal Medicine] Stand Alone Forms: Patient Portal/API
--- NOTE | 2025-06-09 18:37 | PC.NURSE ---
Poison control called. They recommend EKG to see if QTC is prolonged. If QTC normal, then could monitor at home. Can resume next dose 24hours after last dose was taken. Provider Nena aware.
[2025-06-09 18:43] LABS: Add Manual Diff / Slide Review NO; Hematocrit 30.9 % (41-53); Hemoglobin 10.5 g/dL (13.5-17.5); Lymphocytes Absolute Auto 400 /uL (1100-4500); Mean Corpuscular HGB Conc 34.1 % (30-36); Mean Corpuscular Hemoglobin 32.2 PG (26-34); Mean Corpuscular Volume 94.3 fL (80-100); Platelet Count 111 X10^3/uL (150-400)
[2025-06-09 18:55] LABS: Alanine Aminotransferase 21 IU/L (<50); Albumin 4.1 g/dL (3.5-5.0); Albumin Globulin Ratio 1.4 (1.0-2.8); Alkaline Phosphatase 65 U/L (38-126); Blood Urea Nitrogen 32 mg/dL (9-20); Calcium 9.3 mg/dL (8.4-10.2); Carbon Dioxide 28 mmol/L (22-32); Chloride 101 mmol/L (98-107); Estimated Glomerular Filt Rate 46 mL/min (>60); Globulin 3.0 g/dL (1.7-4.1); Glucose 146 mg/dL (70-99); HEMOLYSIS < 15 (0-50); Lactate (Lactic Acid) 1.7 mmol/L (0.7-2.1); Potassium 3.6 mmol/L (3.4-5.1); Sodium 137 mmol/L (137-145); Total Protein 7.1 g/dL (6.3-8.2)
[2025-06-09 19:12] LABS: Procalcitonin 0.560 ng/mL (<0.5)
--- NOTE | 2025-06-09 20:15 | DI.CT.S_ITS ---
PROCEDURE: CT HEAD/BRAIN WO CON INDICATIONS: aloc TECHNIQUE: Noncontrast 4.5 mm thick angled axial sections acquired from the foramen magnum to the vertex, with coronal and sagittal reformats. For radiation dose reduction, the following was used: automated exposure control, adjustment of mA and/or kV according to patient size. COMPARISON: [facility], CT, CT HEAD/BRAIN WO CON, 04/15/2025, 9:30. FINDINGS: Image quality: Diagnostic. CSF spaces: Basal cisterns are patent. No extra-axial fluid collections. The ventricles are symmetric in size and shape. Brain: No intracranial bleeds or mass effect. There is cerebral volume loss, with resultant ventricular and sulcal prominence. There are periventricular and deep white matter chronic small vessel ischemic changes. There is intracranial internal carotid artery atherosclerosis. Skull and face: Calvarium and visualized facial bones appear intact, without suspicious lesions. Sinuses: Visualized sinuses and mastoids are clear. IMPRESSION: 1. No acute intracranial process. 2. Moderate atrophy and chronic microvascular ischemic changes. Dictated by: Sarita Hsu M.D. on 06/09/2025 at 20:35 Approved by: Sarita Hsu M.D. on 06/09/2025 at 20:35
--- NOTE | 2025-06-09 21:21 | EKG_ITS ---
[address] [address] [address] [address] Test Date: 2025-06-09 Pat Name: Cody Carranza Department: Room: Gender: Male Closer On: KATELYN : 1945 Requested By: Order Number: [id number] Reading MD: aJmes Merlos Measurements Intervals [place] Rate: 97 P: 61 IN: 220 QRS: -55 QRSD: 90 T: 10 QT: 364 QTc: 462 Interpretive Statements Sinus rhythm with 1st degree AV block with frequent premature ventricular complexes Left axis deviation Electronically Signed On 06-10-2025 14:10:23 PST by James Merlos
--- NOTE | 2025-06-09 21:31 | PC.NURSE ---
2115 poison control called to check on patient and recommended a repeat EKG and electrolyte replacements if needed.
== END 2025-06-09 21:48 | disposition home or self-care (01) ==
PROVIDERS: Emergency Provider Emergency Medicine; PCP Internal Medicine
DX: T36.8X1A Poisoning by other systemic antibiotics, accidental (unintentional), initial encounter (principal); I10 Essential (primary) hypertension; R25.1 Tremor, unspecified; K59.00 Constipation, unspecified; M79.662 Pain in left lower leg; M79.661 Pain in right lower leg
CPT/HCPCS: 36415; 70450; 71045; 80053; 83605; 84145; 85025; 87040; 93005; 99283; 99284